=== PATIENT | female | born 1945 | race Caucasian/White ===

== ENCOUNTER 2019-03-17 18:13 | Inpatient (IN) | payer MEDICARE ==
[~2019-03-17] VITALS: Ht 172.7 cm; Wt 156.5 kg
[~2019-03-17 18:13] MED LIST: LEXAPRO10 MG PO; LISINOPRIL10 MG PO; PLAVIX75 MG PO; SIMVASTATIN20 MG PO
--- OUTSIDE RECORDS SUMMARY | 2019-03-17 18:15 | XMS REPORT ---
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 Allergies, Adverse Reactions, Alerts This patient has no known allergies or adverse reactions. Medications This patient has no known medications. Results Test Description Test Time Test Comments Text Results Atomic Results Result Comments CHEST SINGLE (PORTABLE) [place] [address] Patient Name: LEILA MCKNIGHT MR #: [id number] : 1945 Age/Sex: 71/F Req #: [id number] Adm Physician: TAYLER TIRADO MD Ordered by: TAYLER TIRADO MD Report #: [id number] Location: ICU Room/Bed: [facility] Procedure: [id number] DX/CHEST SINGLE (PORTABLE) Exam Date: 08/30/17 Exam Time: 0818 REPORT STATUS: Signed PROCEDURE: CHEST SINGLE (PORTABLE) COMPARISON: [facility], DX, CHEST SINGLE (PORTABLE), 08/27/2017, 18:02. INDICATIONS: CONGESTIVE HEART FAILURE FINDINGS: LUNGS: Worsening pulmonary edema. PLEURA: Bilateral pleural effusions; right greater than left. HEART T MEDIASTINUM: The heart remains enlarged. The right-sided PICC has been slightly retracted. BONES T SOFT TISSUES: No acute findings. CONCLUSION: Cardiomegaly, bilateral pleural effusions with worsening pulmonary edema. Cheikh Flores D.O. Dictated by: Cheikh Flores D.O. on 08/30/2017 at 10:58 Electronically approved by: Cheikh Flores D.O. on 08/30/2017 at 10:58 Dictated By: CHEIKH FLORES DO 1058 Transcribed By: EUN on 08/30/17 1058 COPY TO: TAYLER TIRADO MD US CHEST (INCL MEDIASTINUM) [place] [address] Patient Name: LEILA MCKNIGHT MR #: [id number] : 1945 Age/Sex: 71/F Req #: [id number] Adm Physician: TAYLER TIRADO MD Ordered by: ALISON CRUZ MD Report #: [id number] Location: ICU Room/Bed: [facility] Procedure: [id number] US/US CHEST (INCL MEDIASTINUM) Exam Date: 08/30/17 Exam Time: 1608 REPORT STATUS: Signed PROCEDURE: US CHEST (INCL MEDIASTINUM) COMPARISON: [facility], CT, CT CHEST WO, 08/27/2017, 15:06. INDICATIONS: Pleural Effusion FINDINGS: Exam limited by patient's body habitus. Examination shows small right pleural effusion with compressive atelectasis of the right lower lobe. No left-sided pleural effusion is identified. CONCLUSION: 1. Limited exam, as described above. Small right pleural effusion and compressive atelectasis of the right lower lobe. Perry Michaud M.D. Dictated by: Perry Michaud M.D. on 08/30/2017 at 17:27 Electronically approved by: Perry Michaud M.D. on 08/30/2017 at 17:27 Dictated By: PERRY MICHAUD MD 26 Transcribed By: EUN on 08/30/171726 COPY TO: ALISON CRUZ MD US RENAL RETROPERITONEAL COMP [place] [address] Patient Name: LEILA MCKNIGHT MR #: [id number] : 1945 Age/Sex: 71/F Req #: [id number] Adm Physician: TAYLER TIRADO MD Ordered by: MARK ROSALES, SHAHRZAD ROSALES Report #: [id number] Location: ICU Room/Bed: ICU [facility] Procedure: [id number] US/US RENAL RETROPERITONEAL COMP Exam Date: 08/28/17 Exam Time: 1226 REPORT STATUS: Signed PROCEDURE: US RETROPERITONEAL ( KIDNEY ). COMPARISON: None. INDICATIONS: HEMA TECHNIQUE: Hill-scale and color sonographic images of the bilateral kidneys and bladder where obtained in transverse and longitudinal planes. Examination limited due to increased body habitus. FINDINGS: RIGHT KIDNEY: 11.2 cm, cortex 1.4 cm Cysts: None. Solid masses: None. Stones: None. Hydronephrosis: None. Echogenicity: Normal. LEFT KIDNEY: 10.9 cm, cortex 1.3 cm Cysts: None. Solid masses: None. Stones: None. Hydronephrosis: None. Echogenicity: Normal. Bladder: Garcia catheter is present in the decompressed urinary bladder. CONCLUSION: No acute sonographic abnormality. Dictated by: Joselin Pablo M.D. on 08/28/2017 at 13:47 Electronically approved by: Joselin Pablo M.D. on 08/28/2017 at 13:47 Dictated By: JOSELIN PABLO MD 1347 Transcribed By: EUN on 08/28/17 1347 COPY TO: SHAHRZAD FLORES CHEST SINGLE (PORTABLE) [place] [address] Patient Name: LEILA MCKNIGHT MR #: [id number] : 1945 Age/Sex: 71/F Req #: [id number] Adm Physician: TAYLER TIRADO MD Ordered by: TAYLER TIRADO MD Report #: [id number] Location: ICU Room/Bed: ICU [facility] Procedure: [id number] DX/CHEST SINGLE (PORTABLE) Exam Date: 08/27/17 Exam Time: 1755 REPORT STATUS: Signed PROCEDURE: A single AP view of the chest. COMPARISON: [facility], CT, CT CHEST WO, 08/27/2017, 15:06. INDICATIONS: PICC LINE PLACEMENT FINDINGS: See impression. IMPRESSION: 1. interval placement of right-sided PIC line, which has its distal tip projecting in the mid to distal SVC. 2. Please see CT chest performed same date for description of lung findings Perry Michaud M.D. Dictated by: Perry Michaud M.D. on 08/27/2017 at 18:55 Electronically approved by: Perry Michaud M.D. on 08/27/2017 at 18:55 Dictated By: PERRY MICHAUD MD 54 COPY TO: TAYLER TIRADO MD CT CHEST WO [place] [address] Patient Name: LEILA MCKNIGHT MR #: [id number] : 1945 Age/Sex: 71/F Req #: [id number] Adm Physician: TAYLER TIRADO MD Ordered by: SHAHRZAD FLORES MD, MD Report #: [id number] Location: ICU Room/Bed: ICU 193 Procedure: [id number] CT/CT CHEST WO Exam Date: 08/27/17 Exam Time: 1506 REPORT STATUS: Signed PROCEDURE: CT CHEST WITHOUT CONTRAST CT scan of the chest WITHOUT intravenous contrast, using standard protocol. TECHNIQUE: The chest was scanned utilizing a multidetector helical scanner from the apex to the level of the adrenal glands. No IV contrast was administered per physician's request. Coronal and sagittal multiplanar reformations were obtained. COMPARISON: [facility], , CHEST 2 VIEWS, 08/24/2017, 19:58. [facility], , CHEST SINGLE (PORTABLE), 08/27/2017, 8:05. INDICATIONS: HILAR MASS FINDINGS: Lack of intravenous contrast limits evaluation of parenchymal findings and vascular pathology. Lines/tubes: None. Lungs and Airways: Centrally located groundglass opacities extending from the wolf, with intralobular septal thickening in the upper lobes, likely representing pulmonary edema. Marked compressive atelectasis of bilateral lower lobes and to a lesser degree bilateral upper lobes. No pulmonary nodules in the aerated portions of the lungs. No definite masses are identified. Pleura: Bilateral pleural effusions. No pneumothorax. Heart and mediastinum: The right thyroid lobe is enlarged with questionable hypodensity in its inferomedial aspect (series 2, image 13), which may represent a nodule. Mild cardiomegaly. Trace pericardial effusion. Atherosclerotic calcification of the aortic valve, coronary arteries and thoracic aorta, particularly at the arch. Aorta is non-aneurysmal. The main pulmonary artery is enlarged, measuring approximately 4.5 cm. Lymph nodes: Enlarged right lower paratracheal lymph node, which measures approximately 1.6 cm in short axis (series 2 image 44). Mild enlargement of a subcarinal lymph node which measures 1.5 cm in short axis (series 2 image 52). Difficult to evaluate for hilar adenopathy given the lack of intravenous contrast. No axillary adenopathy. Abdomen: Limited views of the upper abdomen show no abnormality within the visualized liver, spleen. Both adrenal glands are thickened, without focal discrete lesions. Bones: No acute bony abnormalities. Marked multilevel degenerative disc changes in the thoracic spine. Mild rightward curvature of the thoracic spine. IMPRESSION: 1. mild cardiomegaly, bilateral pulmonary edema, bilateral pleural effusions and marked compressive atelectasis of bilateral lower lobes and to a lesser degree upper lobes. Findings likely represent decompensated CHF. 2. No definite pulmonary nodules or masses are identified, however, exam is limited by lack of intravenous contrast. 3. Enlarged right lower paratracheal and subcarinal lymph nodes, which are probably reactive. 4. Thickening of both adrenal glands, likely due to hyperplasia. 5. Enlarged main pulmonary artery, consistent with pulmonary hypertension. Perry Michaud M.D. Dictated by: Perry Michaud M.D. on 08/27/2017 at 16:05 Electronically approved by: Perry Michaud M.D. on 08/27/2017 at 16:05 Dictated By: PERRY MICHAUD MD 1601 Transcribed By: EUN on 08/27/17 1605 COPY TO: SHAHRZAD FLORES [facility] (PORTABLE) [place] [id number] Patient Name: LEILA MCKNIGHT MR #: [id number] : 1945 Age/Sex: 71/F Req #: [id number] Adm Physician: TAYLER TIRADO MD Ordered by: TAYLER TIRADO MD Report #: [id number] Location: ICU Room/Bed: ICU 193-1 Procedure: [id number] DX/CHEST SINGLE (PORTABLE) Exam Date: 08/27/17 Exam Time: 0820 REPORT STATUS: Signed PROCEDURE: A single AP view of the chest. COMPARISON: Chest 2 views 08/24/2017. INDICATIONS: DYSPNEA FINDINGS: Lines/tubes: None. Lungs: Bilateral perihilar opacifications, increased since previous examination. Pleura: Bilateral pleural effusions, right greater than left. No pneumothorax. Heart and mediastinum: The heart and the mediastinum are unremarkable. Atherosclerotic calcifications. Bones: No acute bony abnormality. Degenerative changes of the thoracic spine. IMPRESSION: Bilateral perihilar opacifications likely represent pulmonary edema. Bilateral pleural effusions. Dictated by: Joselin Pablo M.D. on 08/27/2017 at 9:06 Electronically approved by: Joselin Pablo M.D. on 08/27/2017 at 9:06 Dictated By: JOSELIN PABLO MD 5 Transcribed By: EUN on 08/27/17 09 COPY TO: TAYLER TIRADO MD CT BRAIN WO [place] [address] Patient Name: LEILA MCKNIGHT MR #: [id number] : 1945 Age/Sex: 71/F Req #: [id number] Adm Physician: TAYLER TIRADO MD Ordered by: KAREN WEBSTER MD Report #: [id number] Location: MED/SURG2 Room/Bed: 203-1 Procedure: [id number] CT/CT BRAIN WO Exam Date: 08/25/17 Exam Time: 1335 REPORT STATUS: Signed History: Leg weakness Comparison studies: None Technique: Axial images were obtained from the skull base to the vertex. Coronal and sagittal reconstructions obtained from the axial data. Findings: Scalp/skull: No abnormalities. No fractures, blastic or lytic lesions. Extra-axial spaces: No masses. No fluid collections. Brain sulci: Appropriate for age. Ventricles: Normal in size and configuration. No hydrocephalus. Parenchyma: Subtle hypodensities in the supratentorial white matter are small vessel ischemic changes. No masses, hemorrhage, acute or chronic cortical vascular insults. Sellar/suprasellar region: No abnormalities Craniocervical junction: Patent foramen magnum. No Chiari one malformation. IMPRESSION: 1. No acute abnormalities. 2. Mild age-related white matter small vessel ischemic changes Signed by: Dr. Chung Ware M.D. on 08/25/2017 2:30 PM Dictated By: CHUNG STEWART MD, MD 1430 Transcribed By: LACI on 08/25/17 1430 COPY TO: KAREN WEBSTER MD CHEST 2 VIEWS [place] [address] Patient Name: LEILA MCKNIGHT MR #: [id number] : 1945 Age/Sex: 71/F Req #: [id number] Adm Physician: Ordered by: OSMEL SMITH Report #: [id number] Location: ER Room/Bed: Procedure: [id number] DX/CHEST 2 VIEWS Exam Date: 08/24/17 Exam Time: 1950 REPORT STATUS: Signed Two view chest x-ray INDICATION: Shortness of breath, weakness, chest tightness, history of smoking COMPARISON: None. FINDINGS: The heart is enlarged with aortic ectasia. There is no evidence of hilar lymphadenopathy. The lungs are hyperinflated. Central pulmonary vasculature is prominent. There are bilateral pleural effusions. The diaphragms are poorly visualized. No confluent infiltrate in the aerated lung. No pneumothorax. Evaluation of the osseous structures demonstrates diffuse demineralization and degenerative changes of the spine. No destructive lesions. IMPRESSION: Cardiomegaly and pulmonary vascular congestion. Pulmonary hyperinflation consistent with COPD. Bilateral pleural effusions. Underlying pneumonia cannot be excluded. Signed by: Dr. Jared Lundberg MD on 08/24/2017 8:43 PM Dictated By: JARED LUNDBERG MD 42 Transcribed By: LACI on 08/24/172042 COPY TO: OSMEL SMITH
[2019-03-17] MEDS ORDERED: ALBUTEROL/IPRATROPIUM 3 ML NEB NEB ONE (19:00)
[2019-03-17] MEDS ORDERED: METHYLPREDNISOLONE SOD SUCC 125 MG/2ML VIAL IV ONE (19:00)
[2019-03-17] MEDS ORDERED: IPRATROPIUM BROMIDE 0.02% 2.5 ML NEB NEB ONE (19:30)
[2019-03-17] MEDS ORDERED: ALBUTEROL SULF 0.083% NEB SOLN 3 ML NEB NEB STA (19:30)
[2019-03-17] MEDS ORDERED: ALBUTEROL SULF 0.083% NEB SOLN 3 ML NEB ONE (19:34)
[2019-03-17] MEDS ORDERED: IPRATROPIUM BROMIDE 0.02% 2.5 ML NEB ONE (19:35)
[2019-03-17 19:52] LABS: BASOPHILS # (AUTO) 0.1 (0.0-0.1); EOSINOPHILS # (AUTO) 0.1 (0.0-0.4); HEMATOCRIT 45.3 % (34.2-44.1); HEMOGLOBIN 14.2 g/dL (12.0-16.0); LYMPHOCYTES # (AUTO) 1.1 (1.0-3.2); LYMPHOCYTES % 13.5 % (18.0-39.1); MEAN CORPUSCULAR HEMOGLOBIN 30.5 pg (28-32); MEAN CORPUSCULAR HGB CONC 31.3 g/dL (31-35); MEAN CORPUSCULAR VOLUME 97.2 fL (81-99); MONOCYTES # (AUTO) 0.8 (0.2-0.8); MONOCYTES % 9.5 % (4.4-11.3); NEUTROPHILS % 74.5 % (38.7-80.0); PLATELET COUNT 175 x10e3/uL (140-360); RED BLOOD COUNT 4.66 x10e6/uL (3.6-5.1); RED CELL DISTRIBUTION WIDTH 13.9 % (11.7-14.4)
[2019-03-17 20:02] LABS: INR 1.17; PARTIAL THROMBOPLASTIN TIME 29.7 seconds (23.8-35.5); PROTHROMBIN TIME 15.5 seconds (11.9-14.5)
[2019-03-17 20:12] LABS: ALBUMIN 3.5 g/dL (3.5-5.0); ANION GAP 11.8 mmol/L (8-16); CALCIUM 9.1 mg/dL (8.4-10.2); CREATININE, SERUM 1.64 mg/dL (0.57-1.11); MAGNESIUM 2.1 MG/DL (1.3-2.1); POTASSIUM 4.8 mmol/L (3.5-5.1)
[2019-03-17 20:19] LABS: B-TYPE NATRIURETIC PEPTIDE2 229.4 pg/mL (0-100); CREATINE KINASE MB 3.4 ng/mL (0-5.0)
[2019-03-17 20:35] VITALS: BP 138/75
--- NOTE | 2019-03-17 20:46 | Diagnostic Imaging Report ---
EXAMINATION: CHEST SINGLE (PORTABLE) INDICATION: ^ERMD ORDER ^[id number] ^1900 ^Y COMPARISON: None FINDINGS: AP view, limited findings due to body habitus TUBES and LINES: None. LUNGS/PLEURA: Bibasilar opacities. Effusions cannot be excluded. No pneumothorax. Prominent pulmonary vascular. HEART AND MEDIASTINUM: Enlarged cardiac silhouette. BONES AND SOFT TISSUES: No acute osseous lesion. Soft tissues are unremarkable. UPPER ABDOMEN: No free air under the diaphragm. IMPRESSION: Limited study due to body habitus. Bibasilar opacities could represent developing infectious/inflammatory processes. Enlarged cardiac silhouette and prominent pulmonary vasculature. Signed by: Waqas Malloy MD on 03/17/2019 8:43 PM
[2019-03-17] MEDS ORDERED: ONDANSETRON HCL INJ 2MG/ML 2ML 2 MG/ML VIAL IV PRN (21:00)
[2019-03-17] MEDS ORDERED: AZITHROMYCIN 500MG/SOD CHL 0.9% 250ML BAG IV SCH (21:00)
[2019-03-17] MEDS ORDERED: CEFTRIAXONE SOD 1 GRAM/0.9% SOD CHL 50ML BAG IV SCH (21:00)
[2019-03-17] MEDS ORDERED: ACETAMINOPHEN 325 MG TAB PO PRN (21:00)
[2019-03-17] MEDS: ALBUTEROL SULF 0.083% NEB SOLN 3 ML NEB NEB SCH (21:00)
[2019-03-17] MEDS ORDERED: SODIUM CHLORIDE FLUSH 10 ML SYR INJ PRN (21:00)
[2019-03-17] MEDS: CEFTRIAXONE SOD 1 GM/NS 50 ML 50 ML IV SCH (21:34)
[2019-03-17 22:35] VITALS: BP 138/75
[2019-03-17] MEDS ORDERED: LIPITOR20 MG PO (23:34)
[2019-03-17] MEDS ORDERED: METFORMIN HCL500 MG PO (23:35)
[2019-03-17 23:52] VITALS: BP 138/75
[2019-03-18] VITALS (7 sets, daily range): BP systolic 126–180; BP diastolic 60–80
[2019-03-18] MEDS ORDERED: SODIUM CHLORIDE 0.9% 250ML 250 ML ONE ×2 (00:10→22:07)
[2019-03-18] MEDS: AZITHROMYCIN 500MG/NS 250 ML 250 ML IV SCH ×2 (00:22→21:50)
[2019-03-18] MEDS: IPRATROPIUM BROMIDE 0.02% 2.5 ML NEB NEB SCH ×5 (01:00→20:00)
[2019-03-18 01:07] LABS: BILIRUBIN,URINE NEGATIVE (NEGATIVE); CLARITY,URINE SL CLOUDY (CLEAR); COLOR,URINE YELLOW (YELLOW); KETONES,URINE NEGATIVE (NEGATIVE); LEUKOCYTE ESTERASE ,URINE NEGATIVE (NEGATIVE); NITRITE,URINE POSITIVE (NEGATIVE); PROTEIN,URINE DIPSTICK 2+ (NEGATIVE); URINE UROBILINOGEN 0.2 mg/dL (0.2 - 1)
[2019-03-18 01:27] LABS: BACTERIA,URINE MANY /HPF; EPITHELIAL CELLS,URINE FEW /LPF; WBC,URINE (MAN) 21-50 /HPF (0-5)
[2019-03-18] MEDS: ALBUTEROL SULF 0.083% NEB SOLN 3 ML NEB NEB SCH ×6 (03:00→20:00)
[2019-03-18 06:15] LABS: BASOPHILS % 0.3 % (0.0-1.0); HEMATOCRIT 45.9 % (34.2-44.1); HEMOGLOBIN 13.9 g/dL (12.0-16.0); LYMPHOCYTES # (AUTO) 0.3 (1.0-3.2); MEAN CORPUSCULAR HEMOGLOBIN 30.2 pg (28-32); MEAN CORPUSCULAR HGB CONC 30.3 g/dL (31-35); MEAN CORPUSCULAR VOLUME 99.6 fL (81-99); MONOCYTES % 0.5 % (4.4-11.3); NEUTROPHILS # (AUTO) 6.9 (2.1-6.9); NEUTROPHILS % 94.5 % (38.7-80.0); PLATELET COUNT 162 x10e3/uL (140-360); RED BLOOD COUNT 4.61 x10e6/uL (3.6-5.1); RED CELL DISTRIBUTION WIDTH 13.7 % (11.7-14.4)
[2019-03-18 06:43] LABS: ALBUMIN 3.5 g/dL (3.5-5.0); ALBUMIN/GLOBULIN RATIO 0.9 (0.8-2.0); ANION GAP 15.1 mmol/L (8-16); CALCIUM 8.8 mg/dL (8.4-10.2); CREATININE, SERUM 1.57 mg/dL (0.57-1.11); POTASSIUM 5.1 mmol/L (3.5-5.1)
[2019-03-18 06:52] LABS: CREATINE KINASE MB 3.9 ng/mL (0-5.0)
[2019-03-18] MEDS: METHYLPREDNISOLONE SOD SUCC 125 MG/2ML VIAL IV SCH ×2 (15:04→21:49)
[2019-03-18] MEDS: CLOPIDOGREL BISULFATE 75 MG TAB PO SCH (15:04)
[2019-03-18 15:33] LABS: CREATINE KINASE MB 5.7 ng/mL (0-5.0)
[2019-03-18] MEDS ORDERED: ATORVASTATIN 20 MG TAB PO SCH (21:00)
[2019-03-18] MEDS: CEFTRIAXONE SOD 1 GM/NS 50 ML 50 ML IV SCH (21:15)
--- NOTE | 2019-03-18 21:55 | History and Physical ---
HISTORY OF PRESENT ILLNESS: The patient is a 73-year-old white female, who has a past medical history positive for COPD, history of CVA in the past, history of sleep apnea, and morbid obesity, came here with shortness of breath. She was found to have pneumonia and started on IV antibiotic, breathing treatment, oxygen, and Solu-Medrol. REVIEW OF SYSTEMS: CARDIOVASCULAR: No chest pain or palpitations. RESPIRATORY: She does have shortness of breath on exertion and cough. GASTROINTESTINAL: No nausea. No vomiting. No diarrhea. GENITOURINARY: No frequency. No dysuria. ALLERGIES: SHE IS NOT ALLERGIC TO ANY MEDICATION. SOCIAL HISTORY: She smokes. She quit a few years ago. She does not drink alcohol. PAST MEDICAL HISTORY: COPD, history of CVA, history of sleep apnea, and morbid obesity. PHYSICAL EXAMINATION: VITAL SIGNS: Blood pressure 136/65, temperature 99.2, heart rate 94 per minute, respiratory rate is 20 per minute, and oxygen saturation 91%. HEART: Showed regular rhythm. Normal S1 and S2 sounds. LUNGS: Clear bilaterally. ABDOMEN: Soft. EXTREMITIES: Showed browny coloration of both lower extremities. LABORATORY DATA: On the blood work, we have CBC; white blood count 7.28, hemoglobin 13.9, hematocrit 45.9, platelet count 162,000, and MCV 99.6. On the BMP; sodium 138, potassium 5.1, chloride 101, CO2 of 27, anion gap 15.1, a BUN 28, and creatinine 1.57. GFR of 32, which is low. Glucose is 229, the last one was 276 and before that was 242. Lactic acid 15.5, calcium 8.8, total bilirubin 1.1, AST 15, ALT 12, alkaline phosphatase 76, creatine kinase 91, CK-MB 3.90, and troponin 0.025. Brain natriuretic peptide is 229.4. Protein 7.2, albumin 3.5, globulin 3.7, albumin-globulin ratio 0.9. Urinalysis is essentially unremarkable except for nitrite. On the chest x-ray, bilateral opacities could represent developing infection, inflammatory process, enlarged cardiac silhouette and prominent pulmonary vasculature. TREATMENT AND PLAN: Continue albuterol q.4 hours, Atrovent q.6 hours, Flonase 1 inhalation daily, Zithromax 250 mg IV once a day, Solu-Medrol 60 mg IV twice a day, ceftriaxone 2 g IV daily, Lipitor 20 mg at bedtime, Plavix 75 mg daily. I want to hold the Lipitor while she is on Zithromax of course. Continue Tylenol 650 mg q.4 hours as needed, citalopram 10 mg daily, lisinopril 20 mg daily, metformin 500 mg daily. We are going to discontinue because of the renal insufficiency. Continue Zofran 4 mg IV q.4 hours as needed. The patient will be transferred to [facility] once accepted. MD CAROL Hull/YANELI /[id number]
[2019-03-19] VITALS: BP 129/63
[2019-03-19] MEDS: IPRATROPIUM BROMIDE 0.02% 2.5 ML NEB NEB SCH ×3 (01:00→11:00)
[2019-03-19] MEDS: ALBUTEROL SULF 0.083% NEB SOLN 3 ML NEB NEB SCH ×5 (01:00→14:45)
--- NOTE | 2019-03-19 02:41 | Consultation ---
DATE OF CONSULTATION: 03/18/[address] Skip Colon, the patient's primary care doctor. REASON FOR REFERRAL: Hypoxemia. HISTORY OF PRESENT ILLNESS: Ms. Weaver is a pleasant 73-year-old female with hypoxemia. The patient presented to [facility] on March 17, 2019. The patient with history of multiple pulmonary problems, but due to economic limitation, she has had some difficulty adhering to recommended treatments at times. The patient with increasing shortness of breath for the last two weeks. Due to worsening swelling in the abdomen and worsening swelling in the legs, she presents to the emergency room. Due to chest x-ray finding of mild concomitant overload, she has recommended for hospitalization. Her oxygen saturation was 72% on room air prior to coming to the hospital. She says she ran out of her oxygen, which was actually borrowed from her daughter. The patient without inhalers. The patient never did sleep apnea evaluation. PAST MEDICAL HISTORY: COPD, diabetes, morbid obesity, chronic venous stasis of legs, CHF, pulmonary hypertension, history of CVA, and chronic respiratory failure. MEDICATIONS: Medication list reviewed per the chart record. ALLERGIES: NO KNOWN DRUG ALLERGIES. SOCIAL HISTORY: No alcohol or drugs. The patient smoked from age 13 to 64, two packs per day. She has had a lot of dogs mainly, but no other pets. She lives with her daughter and daughter's family. She is mainly bedbound or wheelchair bound and she has extreme difficulty standing, so therefore she is not walking. No hospital bed. Most of her supplies indeed are in woodward phase. FAMILY HISTORY: Noncontributory. REVIEW OF SYSTEMS: GENERAL: No weight loss. HEENT: No mouth ulcers. ENDOCRINE: No thyroid disease. PULMONARY: No asthma. CARDIAC: No recent heart attack. GI: No constipation. : No blood in urine. NEUROLOGIC: No seizures. MUSCULOSKELETAL: There is some arthritis in her knees on straightening. DERMATOLOGIC: No other rashes other than stasis in the legs. OBJECTIVE: VITAL SIGNS: Afebrile, vital signs noted and reviewed per the chart record. GENERAL: No acute distress, alert and calm. HEENT: Normocephalic and atraumatic. NECK: Supple. Throat midline. LUNGS: Bilateral air entry, decreased breath sounds bilaterally, few rhonchi and small wheezes. CARDIOVASCULAR: S1, S2. No murmurs, rubs, or gallops. ABDOMEN: Soft and nontender. EXTREMITIES: No clubbing, no cyanosis, there is 2 to 3+ edema. INTEGUMENT: No rash. No purpura. Some stasis changes to the legs. LABORATORY DATA: 28 BUN, 1.6 creatinine. 5.1 potassium, 16 bicarbonate, 7 white count, 46 hematocrit, 162 platelets. BNP was 229. Albumin 3.5. IMPRESSION AND PLAN: 1. Acute respiratory failure, hypoxemic and possibly hypercapnic. 2. Chronic respiratory failure, hypoxemic and hypercapnic as evidenced by August 2017. ABG, 7.10/130 pCO2, 95 pO2. 3. Morbid obesity. 4. Chronic obstructive pulmonary disease with exacerbation. 5. Cor pulmonale. 6. Obstructive sleep apnea, nonadherent to treatment. 7. Chronic smoker, quit 9 years ago. 8. Congestive heart failure. 9. Peripheral vascular disease. 10. Hypertension. 11. Pneumonia. 12. Debility, inability to mobilize, poor functional endurance. 13. Urinary tract infection with urinalysis, 41-50 white cells. 14. History of cerebrovascular accident. I highly recommend outpatient oxygen therapy. I highly recommend noninvasive ventilator as outpatient as the patient is not eligible to use any other equivalent device including CPAP or bilevel PAP devices. These devices do not have alarms that are critically needed, do not have backup battery power, and cannot record the same information that may be critically necessary and may lead to to the patient if these special elements are not present. Bilevel device cannot provide these elements. The patient also was recommended for hospital bed with electric power in bed rails. Bed rails are needed because the patient has difficulty mobilizing and needs to pull on structure in order to safely turn or sit up. Electric power is used for the patient can mobilize herself for her COPD and respiratory failure as there are times that there is no assistance available to mobilize her. These are important that the patient can continue to breath and not asphyxiate. The patient is also recommended for any wheelchair device for her size as well as other equipment as mobility is paramount for her and her quality of life. Continue antibiotics for pneumonia and urinary tract infection and followup cultures. Followup elevated creatinine. Diuresis as her kidneys tolerate. Thank you very much, Dr. Colon for allowing me a chance to participate in the care of Ms. Weaver. Please call for questions. MD PRICILLA Saldaña/YANELI /[phone]
[2019-03-19 04:00] VITALS: BP 110/55
[2019-03-19] MEDS ORDERED: BUDESONIDE 180MCG TUBUHALER INH SCH (06:00)
[2019-03-19] MEDS ORDERED: METFORMIN HCL 500 MG TAB PO SCH (08:00)
[2019-03-19 08:25] VITALS: BP 112/22
[2019-03-19] MEDS ORDERED: LISINOPRIL 10 MG TAB PO SCH (09:00)
[2019-03-19] MEDS ORDERED: ESCITALOPRAM OXALATE 10 MG TAB PO SCH (09:00)
[2019-03-19 09:10] VITALS: BP 112/22
[2019-03-19] MEDS: METHYLPREDNISOLONE SOD SUCC 125 MG/2ML VIAL IV SCH (09:18)
[2019-03-19] MEDS: CLOPIDOGREL BISULFATE 75 MG TAB PO SCH (09:19)
[2019-03-19 13:47] VITALS: BP 135/60
[2019-03-19] MEDS ORDERED: ONDANSETRON HCL 4 MG ORAL DISINTEGRATING TAB PO PRN (14:45)
[2019-03-19 16:42] VITALS: BP 124/62
[2019-03-19] MEDS ORDERED: DOCUSATE SODIUM 100 MG CAP PO SCH (17:00)
--- NOTE | 2019-03-20 03:32 | Discharge Summary ---
HISTORY: A 73-year-old female with past medical history positive for COPD, hypercholesterolemia, hypertension, diabetes, came here with COPD exacerbation. She was also found to have UTI, started on IV antibiotic, breathing treatment. The patient is going to go to [facility] today. PHYSICAL EXAMINATION: HEART: Showed regular rhythm. Normal S1 and S2 sound. LUNGS: Clear bilaterally. ABDOMEN: Soft. FINAL IMPRESSION: 1. Chronic obstructive pulmonary disease exacerbation. 2. Urinary tract infection. 3. Uncontrolled diabetes mellitus type 2 with chronic renal insufficiency. 4. Chronic renal insufficiency, stage 3. 5. Obstructive sleep apnea. 6. pneumonia. 7. History of cerebrovascular accident without deficit. 8. Oatdz-sf-pwbortc renal failure stage 3. 9. Morbid obesity. PLAN OF TREATMENT: Continue albuterol q.4 hours, Atrovent q.6 hours with Pulmicort 1 inhalation daily, Zithromax 250 mg IV daily, Solu-Medrol 60 mg IV twice a day, ceftriaxone 2 g IV once a day, Lipitor 20 mg daily, Plavix 75 mg daily, Tylenol 650 mg q.4 hours as needed, citalopram 10 mg daily, lisinopril 20 mg daily, metformin 500 mg daily, and Zofran 4 mg IV q.4 hours as needed. The patient is going to be transferred to [facility] today for physical and occupational therapy, antibiotic and optimization of cardiopulmonary status. MD CAROL Hull/YANELI /[id number]
[2019-03-20] MEDS ORDERED: GLIMEPIRIDE 2 MG TAB PO SCH (08:00)
[2019-03-20] MEDS ORDERED: LISINOPRIL 20 MG TAB PO SCH (09:00)
== END 2019-03-19 18:14 | DRG 193 ==
LOC: ER 18:13 → ERHOLD 21:33 → MED/SURG 22:35 → MED/SURG2 03-18 14:33
PROVIDERS: ADMIT Internal Medicine; ATTEND Internal Medicine
DX: J15.9 Unspecified bacterial pneumonia (principal); J96.22 Acute and chronic respiratory failure with hypercapnia; J96.21 Acute and chronic respiratory failure with hypoxia; J44.0 Chronic obstructive pulmonary disease with (acute) lower respiratory infection; N17.9 Acute kidney failure, unspecified; Z68.43 Body mass index [BMI] 50.0-59.9, adult; I13.0 Hypertensive heart and chronic kidney disease with heart failure and stage 1 through stage 4 chronic kidney disease, or unspecified chronic kidney disease; N39.0 Urinary tract infection, site not specified; J44.1 Chronic obstructive pulmonary disease with (acute) exacerbation; E66.01 Morbid (severe) obesity due to excess calories; I87.8 Other specified disorders of veins; E11.65 Type 2 diabetes mellitus with hyperglycemia; E78.00 Pure hypercholesterolemia, unspecified; E11.22 Type 2 diabetes mellitus with diabetic chronic kidney disease; N18.3 Chronic kidney disease, stage 3 (moderate); I50.9 Heart failure, unspecified; I27.81 Cor pulmonale (chronic); G47.33 Obstructive sleep apnea (adult) (pediatric); Z99.3 Dependence on wheelchair; Z86.73 Personal history of transient ischemic attack (TIA), and cerebral infarction without residual deficits; Z87.891 Personal history of nicotine dependence; R53.81 Other malaise; Z91.19 Patient's noncompliance with other medical treatment and regimen; Z79.84 Long term (current) use of oral hypoglycemic drugs; Z79.02 Long term (current) use of antithrombotics/antiplatelets
CPT/HCPCS: 36415; 71045; 80053; 81001; 82550; 82553; 82948; 83605; 83735; 83880; 84484; 85025; 85610; 85730; 87040; 87086; 87186; 93005; 94640; 99284; J0456; J0696; J2930; J7050

== ENCOUNTER 2021-01-07 11:58 | Inpatient (IN) | payer MEDICARE ==
[~2021-01-07] VITALS: Ht 172.7 cm; Wt 156.5 kg
[~2021-01-07 11:58] MED LIST changes: +LIPITOR20 MG PO; +METFORMIN HCL500 MG PO
[2021-01-07] MEDS ORDERED: ASPIRIN 81 MG CHEW TAB PO ONE ×2 (12:15→14:45)
[2021-01-07 12:35] LABS: BASOPHILS # (AUTO) 0.1 (0.0-0.1); BASOPHILS % 0.9 % (0.0-1.0); EOSINOPHILS # (AUTO) 0.1 (0.0-0.4); EOSINOPHILS % 0.9 % (0.0-6.0); HEMATOCRIT 45.9 % (34.2-44.1); HEMOGLOBIN 14.2 g/dL (12.0-16.0); LYMPHOCYTES % 14.5 % (18.0-39.1); MEAN CORPUSCULAR HEMOGLOBIN 30.7 pg (28-32); MEAN CORPUSCULAR HGB CONC 30.9 g/dL (31-35); MEAN CORPUSCULAR VOLUME 99.4 fL (81-99); MONOCYTES # (AUTO) 0.4 (0.2-0.8); MONOCYTES % 6.2 % (4.4-11.3); NEUTROPHILS # (AUTO) 5.2 (2.1-6.9); NEUTROPHILS % 76.9 % (38.7-80.0); PLATELET COUNT 132 x10e3/uL (140-360); RED BLOOD COUNT 4.62 x10e6/uL (3.6-5.1); RED CELL DISTRIBUTION WIDTH 13.4 % (11.7-14.4)
[2021-01-07 12:54] LABS: ALBUMIN 3.4 g/dL (3.5-5.0); ALBUMIN/GLOBULIN RATIO 0.8 (0.8-2.0); ANION GAP 13.8 mmol/L (8-16); CREATININE, SERUM 1.27 mg/dL (0.57-1.11); POTASSIUM 4.8 mmol/L (3.5-5.1)
[2021-01-07 13:08] LABS: CLARITY,URINE SL CLOUDY (CLEAR); COLOR,URINE YELLOW (YELLOW); KETONES,URINE NEGATIVE (NEGATIVE); LEUKOCYTE ESTERASE ,URINE NEGATIVE (NEGATIVE); NITRITE,URINE POSITIVE (NEGATIVE); PROTEIN,URINE DIPSTICK >=300 (NEGATIVE); URINE UROBILINOGEN 0.2 mg/dL (0.2 - 1)
[2021-01-07 13:11] LABS: B-TYPE NATRIURETIC PEPTIDE2 48.2 pg/mL (0-100)
[2021-01-07 13:16] LABS: BACTERIA,URINE MANY /HPF; EPITHELIAL CELLS,URINE FEW /LPF; RBC,URINE 0-5 /HPF (0-5); WBC,URINE (MAN) 21-50 /HPF (0-5)
[2021-01-07] MEDS ORDERED: SODIUM CHLORIDE FLUSH 10 ML SYR INJ PRN (14:45)
[2021-01-07] MEDS ORDERED: ALBUTEROL/IPRATROPIUM 3 ML NEB NEB STA (15:03)
[2021-01-07] MEDS ORDERED: ALBUTEROL/IPRATROPIUM 3 ML NEB ONE (15:14)
[2021-01-07] MEDS ORDERED: ACETAMINOPHEN 325 MG TAB PO ONE (15:30)
[2021-01-07 16:27] LABS: ABG HCO3 39 mmol/L (22-26); ABG PCO2 79 mmHg (35-45); ABG PO2 55 mmHg (80-105); ABG TCO2 41
[2021-01-07 18:08] VITALS: BP 101/54
[2021-01-07 18:09] VITALS: BP 101/54
[2021-01-07] MEDS: ENOXAPARIN SOD INJ 60 MG/0.6 ML SYR SC SCH (19:04)
[2021-01-07] MEDS: FUROSEMIDE INJ 10 MG/ML 4 ML VIAL IV SCH (19:04)
[2021-01-07 20:00] VITALS: BP 109/53
[2021-01-07 21:31] VITALS: BP 109/53
[2021-01-08] VITALS (7 sets, daily range): BP systolic 122–133; BP diastolic 66–72
[2021-01-08 05:38] LABS: BASOPHILS # (AUTO) 0.1 (0.0-0.1); BASOPHILS % 0.7 % (0.0-1.0); EOSINOPHILS # (AUTO) 0.1 (0.0-0.4); EOSINOPHILS % 0.9 % (0.0-6.0); HEMATOCRIT 43.3 % (34.2-44.1); HEMOGLOBIN 13.2 g/dL (12.0-16.0); LYMPHOCYTES # (AUTO) 0.7 (1.0-3.2); LYMPHOCYTES % 9.8 % (18.0-39.1); MEAN CORPUSCULAR HEMOGLOBIN 30.3 pg (28-32); MEAN CORPUSCULAR HGB CONC 30.5 g/dL (31-35); MEAN CORPUSCULAR VOLUME 99.3 fL (81-99); MONOCYTES # (AUTO) 0.5 (0.2-0.8); MONOCYTES % 7.2 % (4.4-11.3); NEUTROPHILS # (AUTO) 5.6 (2.1-6.9); NEUTROPHILS % 80.7 % (38.7-80.0); PLATELET COUNT 134 x10e3/uL (140-360); RED BLOOD COUNT 4.36 x10e6/uL (3.6-5.1); RED CELL DISTRIBUTION WIDTH 13.3 % (11.7-14.4)
[2021-01-08 05:54] LABS: ALBUMIN/GLOBULIN RATIO 0.8 (0.8-2.0); ANION GAP 12.8 mmol/L (8-16); CALCIUM 8.5 mg/dL (8.4-10.2); CREATININE, SERUM 1.32 mg/dL (0.57-1.11); POTASSIUM 4.8 mmol/L (3.5-5.1)
[2021-01-08] MEDS: FUROSEMIDE INJ 10 MG/ML 4 ML VIAL IV SCH ×2 (06:09→18:00)
[2021-01-08 06:21] LABS: CREATINE KINASE MB 0.8 ng/mL (0-5.0)
[2021-01-08 13:11] LABS: CREATINE KINASE MB 0.6 ng/mL (0-5.0)
[2021-01-08] MEDS ORDERED: DEXTROSE 50% SYRINGE 50 ML IV PRN (13:45)
[2021-01-08] MEDS ORDERED: CEFTRIAXONE SOD 2 GM/100 ML ML IV SCH (13:45)
[2021-01-08] MEDS ORDERED: SODIUM CHLORIDE 0.9% 250ML 250 ML ONE (14:23)
[2021-01-08] MEDS: CEFTRIAXONE SOD 2 GM in SODIUM CHLORIDE 0.9% 100 ML IV SCH (14:27)
[2021-01-08] MEDS: AZITHROMYCIN 250MG/NS 100 ML 100 ML IV SCH (15:00)
[2021-01-08] MEDS: ALBUTEROL/IPRATROPIUM 3 ML NEB NEB SCH ×3 (15:00→23:00)
[2021-01-08] MEDS: ENOXAPARIN SOD INJ 60 MG/0.6 ML SYR SC SCH (16:38)
[2021-01-08] MEDS: NYSTATIN 100,000 UNITS/GM CRM 30GM TUBE TOP SCH (16:38)
[2021-01-08] MEDS: BUDESONIDE 0.5MG/2 ML NEB INH SCH (21:20)
[2021-01-09] VITALS (8 sets, daily range): BP systolic 90–141; BP diastolic 52–81
[2021-01-09] MEDS: ALBUTEROL/IPRATROPIUM 3 ML NEB NEB SCH ×6 (03:00→23:25)
[2021-01-09] MEDS: FUROSEMIDE INJ 10 MG/ML 4 ML VIAL IV SCH (06:00)
[2021-01-09 06:23] LABS: BASOPHILS # (AUTO) 0.1 (0.0-0.1); BASOPHILS % 0.8 % (0.0-1.0); EOSINOPHILS # (AUTO) 0.1 (0.0-0.4); EOSINOPHILS % 1.5 % (0.0-6.0); HEMATOCRIT 43.1 % (34.2-44.1); HEMOGLOBIN 13.5 g/dL (12.0-16.0); LYMPHOCYTES # (AUTO) 0.7 (1.0-3.2); LYMPHOCYTES % 10.5 % (18.0-39.1); MEAN CORPUSCULAR HGB CONC 31.3 g/dL (31-35); MEAN CORPUSCULAR VOLUME 98.9 fL (81-99); MONOCYTES # (AUTO) 0.5 (0.2-0.8); MONOCYTES % 7.7 % (4.4-11.3); NEUTROPHILS # (AUTO) 4.9 (2.1-6.9); PLATELET COUNT 130 x10e3/uL (140-360); RED BLOOD COUNT 4.36 x10e6/uL (3.6-5.1); RED CELL DISTRIBUTION WIDTH 13.2 % (11.7-14.4)
[2021-01-09] MEDS: BUDESONIDE 0.5MG/2 ML NEB INH SCH ×2 (06:58→19:13)
[2021-01-09 07:04] LABS: ALBUMIN/GLOBULIN RATIO 0.8 (0.8-2.0); CALCIUM 8.7 mg/dL (8.4-10.2); CREATININE, SERUM 1.16 mg/dL (0.57-1.11)
[2021-01-09] MEDS: ACETAZOLAMIDE 250 MG TAB PO SCH (08:29)
[2021-01-09] MEDS: NYSTATIN 100,000 UNITS/GM CRM 30GM TUBE TOP SCH ×2 (08:30→16:04)
[2021-01-09] MEDS: CLOPIDOGREL BISULFATE 75 MG TAB PO SCH (08:30)
[2021-01-09] MEDS ORDERED: ACETAMINOPHEN 325 MG TAB PO PRN (08:30)
[2021-01-09] MEDS: LISINOPRIL 10 MG TAB PO SCH (08:30)
[2021-01-09] MEDS ORDERED: SODIUM CHLORIDE 0.9% 250ML 250 ML ONE (12:41)
[2021-01-09] MEDS: CEFTRIAXONE SOD 2 GM in SODIUM CHLORIDE 0.9% 100 ML IV SCH (13:39)
[2021-01-09] MEDS: AZITHROMYCIN 250MG/NS 100 ML 100 ML IV SCH (14:33)
[2021-01-09] MEDS: ENOXAPARIN SOD INJ 60 MG/0.6 ML SYR SC SCH (16:04)
[2021-01-10] VITALS (7 sets, daily range): BP systolic 91–119; BP diastolic 51–91
[2021-01-10] MEDS: ALBUTEROL/IPRATROPIUM 3 ML NEB NEB SCH ×7 (03:00→23:30)
[2021-01-10] MEDS: FUROSEMIDE INJ 10 MG/ML 4 ML VIAL IV SCH (06:00)
[2021-01-10 06:35] LABS: CALCIUM 8.6 mg/dL (8.4-10.2); CREATININE, SERUM 1.55 mg/dL (0.57-1.11)
[2021-01-10] MEDS: LISINOPRIL 10 MG TAB PO SCH (07:52)
[2021-01-10] MEDS: NYSTATIN 100,000 UNITS/GM CRM 30GM TUBE TOP SCH ×2 (07:52→17:12)
[2021-01-10] MEDS: CLOPIDOGREL BISULFATE 75 MG TAB PO SCH (07:55)
[2021-01-10] MEDS: ACETAZOLAMIDE 250 MG TAB PO SCH (07:55)
[2021-01-10] MEDS: BUDESONIDE 0.5MG/2 ML NEB INH SCH ×2 (09:36→19:00)
[2021-01-10] MEDS ORDERED: SODIUM CHLORIDE 0.9% 50ML 50 ML ONE (14:17)
[2021-01-10] MEDS: AZITHROMYCIN 250MG/NS 100 ML 100 ML IV SCH (14:48)
[2021-01-10] MEDS: CEFTRIAXONE SOD 2 GM in SODIUM CHLORIDE 0.9% 100 ML IV SCH (15:08)
[2021-01-10] MEDS: ENOXAPARIN SOD INJ 60 MG/0.6 ML SYR SC SCH (17:32)
[2021-01-11] VITALS: BP 104/64
[2021-01-11] MEDS: ALBUTEROL/IPRATROPIUM 3 ML NEB NEB SCH ×2 (02:50→08:05)
[2021-01-11 04:00] VITALS: BP 108/88
[2021-01-11] MEDS: FUROSEMIDE INJ 10 MG/ML 4 ML VIAL IV SCH (06:20)
[2021-01-11 07:54] VITALS: BP 141/64
[2021-01-11] MEDS: BUDESONIDE 0.5MG/2 ML NEB INH SCH (08:05)
[2021-01-11] MEDS: LISINOPRIL 10 MG TAB PO SCH (08:07)
[2021-01-11] MEDS: NYSTATIN 100,000 UNITS/GM CRM 30GM TUBE TOP SCH (08:07)
[2021-01-11] MEDS: ACETAZOLAMIDE 250 MG TAB PO SCH (08:07)
[2021-01-11] MEDS: CLOPIDOGREL BISULFATE 75 MG TAB PO SCH (08:07)
[2021-01-11] MEDS ORDERED: FUROSEMIDE 40 MG TAB PO SCH (09:00)
[2021-01-11 09:22] VITALS: BP 141/64
[2021-01-11 12:09] VITALS: BP 102/49
[2021-01-12] MEDS ORDERED: FUROSEMIDE 40 MG TAB PO SCH (09:00)
== END 2021-01-11 13:08 | DRG 291 ==
LOC: ER 12:03 → ERHOLD 15:53 → IMCU 17:41 → MED/SURG2 01-08 18:35 → MED/SURG 01-10 05:07
PROVIDERS: ADMIT Internal Medicine; ATTEND Internal Medicine
PROC: 0HBRXZZ Excision of Toe Nail, External Approach (ICD-10-PCS; principal; 2021-01-10)
PROC: 0HBRXZZ Excision of Toe Nail, External Approach (ICD-10-PCS; 2021-01-10)
PROC: 0HBRXZZ Excision of Toe Nail, External Approach (ICD-10-PCS; 2021-01-10)
PROC: 0HBRXZZ Excision of Toe Nail, External Approach (ICD-10-PCS; 2021-01-10)
PROC: 0HBRXZZ Excision of Toe Nail, External Approach (ICD-10-PCS; 2021-01-10)
PROC: 0HBRXZZ Excision of Toe Nail, External Approach (ICD-10-PCS; 2021-01-10)
PROC: 0HBRXZZ Excision of Toe Nail, External Approach (ICD-10-PCS; 2021-01-10)
PROC: 0HBRXZZ Excision of Toe Nail, External Approach (ICD-10-PCS; 2021-01-10)
PROC: 0HBRXZZ Excision of Toe Nail, External Approach (ICD-10-PCS; 2021-01-10)
PROC: 0HBRXZZ Excision of Toe Nail, External Approach (ICD-10-PCS; 2021-01-10)
PROC: 02HV33Z Insertion of Infusion Device into Superior Vena Cava, Percutaneous Approach (ICD-10-PCS; 2021-01-10)
DX: I13.0 Hypertensive heart and chronic kidney disease with heart failure and stage 1 through stage 4 chronic kidney disease, or unspecified chronic kidney disease (principal); J96.21 Acute and chronic respiratory failure with hypoxia; J15.9 Unspecified bacterial pneumonia; I50.33 Acute on chronic diastolic (congestive) heart failure; J44.0 Chronic obstructive pulmonary disease with (acute) lower respiratory infection; N17.9 Acute kidney failure, unspecified; G93.40 Encephalopathy, unspecified; Z68.43 Body mass index [BMI] 50.0-59.9, adult; N39.0 Urinary tract infection, site not specified; J44.1 Chronic obstructive pulmonary disease with (acute) exacerbation; I27.81 Cor pulmonale (chronic); N18.30 Chronic kidney disease, stage 3 unspecified; E66.01 Morbid (severe) obesity due to excess calories; G47.30 Sleep apnea, unspecified; I87.2 Venous insufficiency (chronic) (peripheral); B35.1 Tinea unguium; E11.51 Type 2 diabetes mellitus with diabetic peripheral angiopathy without gangrene; Z74.01 Bed confinement status; E11.65 Type 2 diabetes mellitus with hyperglycemia; Z86.73 Personal history of transient ischemic attack (TIA), and cerebral infarction without residual deficits; I27.20 Pulmonary hypertension, unspecified; Z20.822 Contact with and (suspected) exposure to COVID-19; Z74.09 Other reduced mobility
CPT/HCPCS: 36415; 36569; 36600; 51700; 70450; 71045; 80048; 80053; 81001; 82550; 82553; 82805; 82948; 83605; 83735; 83880; 84484; 85025; 87040; 93005; 93306; 94640; 94660; 97139; 99251; 99285; J0696; J1650; J1940; J7050; U0002

== ENCOUNTER → 2021-06-08 | Outpatient (CLI) | payer MEDICARE ==
[~2021-06-08] MED LIST changes: +ALBUTEROL SULF 0.083% NEB SOLN 3 ML NEB ONE
== END ==
LOC: RESP 13:03
PROVIDERS: ATTEND Internal Medicine Critical Care Medicine
DX: R09.02 Hypoxemia (principal); E11.9 Type 2 diabetes mellitus without complications; J44.9 Chronic obstructive pulmonary disease, unspecified; I10 Essential (primary) hypertension; F32.9 Major depressive disorder, single episode, unspecified; E66.2 Morbid (severe) obesity with alveolar hypoventilation; Z86.73 Personal history of transient ischemic attack (TIA), and cerebral infarction without residual deficits
CPT/HCPCS: 94060; 94640; 94727; 94729

== ENCOUNTER 2022-06-22 21:41 | Inpatient (IN) | payer MEDICARE ==
[~2022-06-22] VITALS: Ht 157.5 cm; Wt 131.7 kg
[~2022-06-22 21:41] MED LIST changes: -ALBUTEROL SULF 0.083% NEB SOLN 3 ML NEB ONE
[2022-06-22 22:10] LABS: CLARITY,URINE CLOUDY (CLEAR); COLOR,URINE YELLOW (YELLOW); KETONES,URINE 1+ (NEGATIVE); LEUKOCYTE ESTERASE ,URINE TRACE (NEGATIVE); NITRITE,URINE POSITIVE (NEGATIVE); PROTEIN,URINE DIPSTICK >=300 (NEGATIVE); URINE UROBILINOGEN 0.2 mg/dL (0.2 - 1)
[2022-06-22 22:16] LABS: BACTERIA,URINE MANY /HPF; EPITHELIAL CELLS,URINE FEW /LPF; WBC,URINE (MAN) 21-50 /HPF (0-5)
[2022-06-22 22:40] LABS: BASOPHILS # (AUTO) 0.1 (0.0-0.1); BASOPHILS % 1.3 % (0.0-1.0); EOSINOPHILS % 0.5 % (0.0-6.0); HEMATOCRIT 45.2 % (34.2-44.1); HEMOGLOBIN 14.6 g/dL (12.0-16.0); LYMPHOCYTES # (AUTO) 0.6 (1.0-3.2); LYMPHOCYTES % 15.5 % (18.0-39.1); MEAN CORPUSCULAR HEMOGLOBIN 30.4 pg (28-32); MEAN CORPUSCULAR HGB CONC 32.3 g/dL (31-35); MEAN CORPUSCULAR VOLUME 94.2 fL (81-99); MONOCYTES # (AUTO) 0.6 (0.2-0.8); MONOCYTES % 14.2 % (4.4-11.3); NEUTROPHILS # (AUTO) 2.7 (2.1-6.9); PLATELET COUNT 109 x10e3/uL (140-360); RED CELL DISTRIBUTION WIDTH 12.9 % (11.7-14.4)
[2022-06-22 22:56] LABS: ALBUMIN 3.8 g/dL (3.5-5.0); ALBUMIN/GLOBULIN RATIO 0.9 (0.8-2.0); ANION GAP 20.1 mmol/L (8-16); CALCIUM 9.4 mg/dL (8.4-10.2); CREATININE, SERUM 1.31 mg/dL (0.57-1.11); POTASSIUM 4.1 mmol/L (3.5-5.1)
[2022-06-22 23:02] LABS: CREATINE KINASE MB 2.4 ng/mL (0-5.0)
[2022-06-22] MEDS ORDERED: DEXTROSE 50% SYRINGE 50 ML IV PRN (23:30)
[2022-06-22] MEDS ORDERED: ONDANSETRON HCL INJ 2MG/ML 2ML 2 MG/ML VIAL IV PRN (23:30)
[2022-06-22] MEDS ORDERED: SODIUM CHLORIDE FLUSH 10 ML SYR INJ PRN (23:30)
[2022-06-22] MEDS: ACETAMINOPHEN 325 MG TAB PO PRN (23:55)
[2022-06-23] VITALS (9 sets, daily range): BP systolic 99–138; BP diastolic 57–85
[2022-06-23] MEDS: FUROSEMIDE INJ 10 MG/ML 4 ML VIAL IV SCH ×3 (00:28→20:30)
[2022-06-23] MEDS ORDERED: GLIMEPIRIDE2 MG PO (01:48)
[2022-06-23] MEDS: ACETAMINOPHEN 325 MG TAB PO PRN ×2 (06:08→12:13)
[2022-06-23 07:25] LABS: CREATINE KINASE MB 4.3 ng/mL (0-5.0)
[2022-06-23] MEDS: INSULIN REGULAR, HUMAN 100 UNIT/1 ML SQ SCH ×4 (07:30→20:30)
[2022-06-23] MEDS ORDERED: SODIUM CHLORIDE 0.9% 250ML 250 ML ONE (08:55)
[2022-06-23] MEDS: CLOPIDOGREL BISULFATE 75 MG TAB PO SCH (12:08)
[2022-06-23] MEDS: ESCITALOPRAM OXALATE 10 MG TAB PO SCH (12:08)
[2022-06-23] MEDS: GLIMEPIRIDE 2 MG TAB PO SCH (12:09)
[2022-06-23] MEDS: LISINOPRIL 20 MG TAB PO SCH (12:12)
[2022-06-23 17:36] LABS: CREATINE KINASE MB 4.2 ng/mL (0-5.0)
[2022-06-24] VITALS (8 sets, daily range): BP systolic 99–136; BP diastolic 50–63
[2022-06-24] MEDS: ACETAMINOPHEN 325 MG TAB PO PRN ×3 (00:18→14:13)
[2022-06-24] MEDS: INSULIN REGULAR, HUMAN 100 UNIT/1 ML SQ SCH ×4 (07:30→21:00)
[2022-06-24 07:48] LABS: BASOPHILS % 0.7 % (0.0-1.0); EOSINOPHILS % 0.7 % (0.0-6.0); HEMATOCRIT 42.9 % (34.2-44.1); HEMOGLOBIN 14.2 g/dL (12.0-16.0); LYMPHOCYTES # (AUTO) 0.6 (1.0-3.2); LYMPHOCYTES % 17.9 % (18.0-39.1); MEAN CORPUSCULAR HEMOGLOBIN 30.8 pg (28-32); MEAN CORPUSCULAR HGB CONC 33.1 g/dL (31-35); MEAN CORPUSCULAR VOLUME 93.1 fL (81-99); MONOCYTES # (AUTO) 0.6 (0.2-0.8); MONOCYTES % 20.2 % (4.4-11.3); NEUTROPHILS # (AUTO) 1.9 (2.1-6.9); NEUTROPHILS % 60.2 % (38.7-80.0); PLATELET COUNT 105 x10e3/uL (140-360); RED BLOOD COUNT 4.61 x10e6/uL (3.6-5.1); RED CELL DISTRIBUTION WIDTH 13.6 % (11.7-14.4)
[2022-06-24 08:14] LABS: CREATINE KINASE MB 3.5 ng/mL (0-5.0)
[2022-06-24 08:30] LABS: ANION GAP 20.8 mmol/L (8-16); CALCIUM 8.1 mg/dL (8.4-10.2); CREATININE, SERUM 2.07 mg/dL (0.57-1.11); POTASSIUM 3.8 mmol/L (3.5-5.1)
[2022-06-24] MEDS: FUROSEMIDE INJ 10 MG/ML 4 ML VIAL IV SCH ×2 (09:27→22:34)
[2022-06-24] MEDS: CLOPIDOGREL BISULFATE 75 MG TAB PO SCH (09:27)
[2022-06-24] MEDS: GLIMEPIRIDE 2 MG TAB PO SCH (09:28)
[2022-06-24] MEDS: LISINOPRIL 20 MG TAB PO SCH (09:28)
[2022-06-24] MEDS: ESCITALOPRAM OXALATE 10 MG TAB PO SCH (09:28)
[2022-06-24] MEDS: RIFAXIMIN 550 MG TABLET PO SCH ×2 (14:00→23:38)
[2022-06-24] MEDS ORDERED: DIPHENOXYLATE/ATROPINE TAB PO ONE (14:05)
[2022-06-24] MEDS: LIDOCAINE 4% PATCH TP SCH (14:12)
[2022-06-24] MEDS: MIDODRINE HCL 5 MG TABLET PO SCH (16:18)
[2022-06-24] MEDS: DEXAMETHASONE 4 MG TAB PO SCH (16:18)
[2022-06-25] VITALS (8 sets, daily range): BP systolic 101–134; BP diastolic 53–77
[2022-06-25] MEDS: ACETAMINOPHEN 325 MG TAB PO PRN ×2 (03:33→09:06)
[2022-06-25 06:29] LABS: HEMATOCRIT 40.8 % (34.2-44.1); HEMOGLOBIN 13.9 g/dL (12.0-16.0); LYMPHOCYTES # (AUTO) 0.4 (1.0-3.2); LYMPHOCYTES % 17.6 % (18.0-39.1); MEAN CORPUSCULAR HGB CONC 34.1 g/dL (31-35); MEAN CORPUSCULAR VOLUME 91.1 fL (81-99); MONOCYTES # (AUTO) 0.3 (0.2-0.8); MONOCYTES % 12.3 % (4.4-11.3); NEUTROPHILS # (AUTO) 1.4 (2.1-6.9); NEUTROPHILS % 67.6 % (38.7-80.0); PLATELET COUNT 105 x10e3/uL (140-360); RED BLOOD COUNT 4.48 x10e6/uL (3.6-5.1); RED CELL DISTRIBUTION WIDTH 13.2 % (11.7-14.4)
[2022-06-25 06:43] LABS: CALCIUM 7.9 mg/dL (8.4-10.2); CREATININE, SERUM 2.22 mg/dL (0.57-1.11)
[2022-06-25] MEDS: INSULIN REGULAR, HUMAN 100 UNIT/1 ML SQ SCH ×4 (07:30→21:00)
[2022-06-25] MEDS: GLIMEPIRIDE 2 MG TAB PO SCH (09:04)
[2022-06-25] MEDS: FUROSEMIDE INJ 10 MG/ML 4 ML VIAL IV SCH ×2 (09:04→22:03)
[2022-06-25] MEDS: MIDODRINE HCL 5 MG TABLET PO SCH ×3 (09:04→17:34)
[2022-06-25] MEDS: ESCITALOPRAM OXALATE 10 MG TAB PO SCH (09:04)
[2022-06-25] MEDS: RIFAXIMIN 550 MG TABLET PO SCH ×2 (09:05→22:03)
[2022-06-25] MEDS: LISINOPRIL 20 MG TAB PO SCH (09:05)
[2022-06-25] MEDS: CLOPIDOGREL BISULFATE 75 MG TAB PO SCH (09:05)
[2022-06-25] MEDS: LIDOCAINE 4% PATCH TP SCH (09:06)
[2022-06-25] MEDS: DEXAMETHASONE 4 MG TAB PO SCH (14:34)
[2022-06-26] VITALS (8 sets, daily range): BP systolic 101–109; BP diastolic 58–63
[2022-06-26 05:52] LABS: BASOPHILS % 0.4 % (0.0-1.0); HEMATOCRIT 43.3 % (34.2-44.1); HEMOGLOBIN 13.7 g/dL (12.0-16.0); LYMPHOCYTES # (AUTO) 0.5 (1.0-3.2); LYMPHOCYTES % 18.4 % (18.0-39.1); MEAN CORPUSCULAR HEMOGLOBIN 30.3 pg (28-32); MEAN CORPUSCULAR HGB CONC 31.6 g/dL (31-35); MEAN CORPUSCULAR VOLUME 95.8 fL (81-99); MONOCYTES # (AUTO) 0.3 (0.2-0.8); MONOCYTES % 12.1 % (4.4-11.3); NEUTROPHILS # (AUTO) 1.9 (2.1-6.9); NEUTROPHILS % 68.4 % (38.7-80.0); PLATELET COUNT 112 x10e3/uL (140-360); RED BLOOD COUNT 4.52 x10e6/uL (3.6-5.1); RED CELL DISTRIBUTION WIDTH 13.2 % (11.7-14.4)
[2022-06-26 06:21] LABS: ALBUMIN 3.1 g/dL (3.5-5.0); ANION GAP 13.3 mmol/L (8-16); CREATININE, SERUM 2.1 mg/dL (0.57-1.11); POTASSIUM 4.3 mmol/L (3.5-5.1)
[2022-06-26] MEDS: INSULIN REGULAR, HUMAN 100 UNIT/1 ML SQ SCH ×4 (07:30→21:00)
[2022-06-26] MEDS: ESCITALOPRAM OXALATE 10 MG TAB PO SCH (08:54)
[2022-06-26] MEDS: MIDODRINE HCL 5 MG TABLET PO SCH ×3 (08:54→16:13)
[2022-06-26] MEDS: RIFAXIMIN 550 MG TABLET PO SCH ×2 (08:54→21:25)
[2022-06-26] MEDS: LISINOPRIL 20 MG TAB PO SCH (08:54)
[2022-06-26] MEDS: GLIMEPIRIDE 2 MG TAB PO SCH (08:54)
[2022-06-26] MEDS: LIDOCAINE 4% PATCH TP SCH (08:54)
[2022-06-26] MEDS: FUROSEMIDE INJ 10 MG/ML 4 ML VIAL IV SCH ×2 (08:55→21:25)
[2022-06-26] MEDS: CLOPIDOGREL BISULFATE 75 MG TAB PO SCH (08:56)
[2022-06-26] MEDS ORDERED: ONDANSETRON HCL 4 MG ORAL DISINTEGRATING TAB PO PRN (11:00)
[2022-06-26] MEDS: DEXAMETHASONE 4 MG TAB PO SCH (14:45)
[2022-06-26] MEDS: ACETAMINOPHEN 325 MG TAB PO PRN (16:12)
[2022-06-27] VITALS: BP 116/69
[2022-06-27 06:05] VITALS: BP 143/75
[2022-06-27] MEDS: INSULIN REGULAR, HUMAN 100 UNIT/1 ML SQ SCH (07:24)
[2022-06-27 08:32] VITALS: BP 133/78
[2022-06-27] MEDS: MIDODRINE HCL 5 MG TABLET PO SCH (08:42)
[2022-06-27] MEDS: GLIMEPIRIDE 2 MG TAB PO SCH (08:42)
[2022-06-27] MEDS: RIFAXIMIN 550 MG TABLET PO SCH (08:42)
[2022-06-27] MEDS: FUROSEMIDE INJ 10 MG/ML 4 ML VIAL IV SCH (08:43)
[2022-06-27] MEDS: LISINOPRIL 20 MG TAB PO SCH (08:43)
[2022-06-27] MEDS: LIDOCAINE 4% PATCH TP SCH (08:43)
[2022-06-27] MEDS: CLOPIDOGREL BISULFATE 75 MG TAB PO SCH (08:43)
[2022-06-27] MEDS: ESCITALOPRAM OXALATE 10 MG TAB PO SCH (08:43)
[2022-06-27 08:53] VITALS: BP 133/78
[2022-06-27] MEDS ORDERED: CEFTRIAXONE 2 GM in SODIUM CHLORIDE 0.9% 100 ML IV SCH (09:00)
== END 2022-06-27 11:59 | DRG 177 ==
LOC: ER 21:48 → ERHOLD 23:26 → MED/SURG3 06-23 01:21
PROC: 8E0ZXY6 Isolation (ICD-10-PCS; principal; 2022-06-22)
DX: U07.1 COVID-19 (principal); I50.23 Acute on chronic systolic (congestive) heart failure; J12.82 Pneumonia due to coronavirus disease 2019; J15.9 Unspecified bacterial pneumonia; N39.0 Urinary tract infection, site not specified; I13.0 Hypertensive heart and chronic kidney disease with heart failure and stage 1 through stage 4 chronic kidney disease, or unspecified chronic kidney disease; Z99.81 Dependence on supplemental oxygen; E11.65 Type 2 diabetes mellitus with hyperglycemia; E11.22 Type 2 diabetes mellitus with diabetic chronic kidney disease; N18.2 Chronic kidney disease, stage 2 (mild); E86.0 Dehydration
CPT/HCPCS: 36415; 71045; 80048; 80053; 81001; 82550; 82553; 82948; 83605; 83880; 84484; 85025; 87040; 93005; 94799; 99251; 99284; J0456; J0696; J1817; J1940; J7050

== ENCOUNTER 2023-08-31 18:27 | Inpatient (IN) | payer MEDICARE ==
[~2023-08-31] VITALS: Ht 170.2 cm; Wt 131.5 kg
[~2023-08-31 18:27] MED LIST changes: +GLIMEPIRIDE2 MG PO
[2023-08-31] MEDS ORDERED: ONDANSETRON HCL INJ 2MG/ML 2ML 2 MG/ML VIAL IV STA (19:05)
[2023-08-31] MEDS ORDERED: SODIUM CHLORIDE FLUSH 10 ML SYR IV PRN (19:15)
[2023-08-31 19:27] LABS: BASOPHILS # (AUTO) 0.1 (0.0-0.1); BASOPHILS % 1.1 % (0.0-1.0); EOSINOPHILS # (AUTO) 0.1 (0.0-0.4); EOSINOPHILS % 1.2 % (0.0-6.0); HEMATOCRIT 39.7 % (34.2-44.1); HEMOGLOBIN 12.9 g/dL (12.0-16.0); LYMPHOCYTES # (AUTO) 1.2 (1.0-3.2); MEAN CORPUSCULAR HEMOGLOBIN 31.1 pg (28-32); MEAN CORPUSCULAR HGB CONC 32.5 g/dL (31-35); MEAN CORPUSCULAR VOLUME 95.7 fL (81-99); MONOCYTES # (AUTO) 0.4 (0.2-0.8); MONOCYTES % 6.1 % (4.4-11.3); NEUTROPHILS # (AUTO) 5.4 (2.1-6.9); NEUTROPHILS % 74.3 % (38.7-80.0); PLATELET COUNT 154 x10e3/uL (140-360); RED BLOOD COUNT 4.15 x10e6/uL (3.6-5.1); RED CELL DISTRIBUTION WIDTH 13.2 % (11.7-14.4); WHITE BLOOD COUNT 7.25 x10e3/uL (4.8-10.8)
[2023-08-31 22:11] LABS: ALANINE AMINOTRANSFERASE 6 IU/L (0-55); ALBUMIN 3.6 g/dL (3.5-5.0); ALKALINE PHOSPHATASE 61 IU/L (40-150); ANION GAP 12.6 mmol/L (8-16); BILIRUBIN,TOTAL 1.5 mg/dL (0.2-1.2); BLOOD UREA NITROGEN 13 mg/dL (7-26); BUN/CREATININE RATIO 12 (6-25); CALCIUM 9.4 mg/dL (8.4-10.2); CARBON DIOXIDE 36 mmol/L (22-29); CHLORIDE 98 mmol/L (98-107); CREATININE, SERUM 1.11 mg/dL (0.57-1.11); EST GLOMERULAR FILTRATION RATE 51 ML/MIN (>=60); GLUCOSE 96 mg/dL (74-118); POTASSIUM 4.6 mmol/L (3.5-5.1); SODIUM 142 mmol/L (136-145); TOTAL PROTEIN 7.2 g/dL (6.5-8.1)
[2023-08-31 22:30] LABS: TROPONIN I < 0.001 ng/mL (0-0.300)
[2023-08-31] MEDS ORDERED: SODIUM CHLORIDE FLUSH 10 ML SYR INJ PRN (22:30)
[2023-08-31] MEDS ORDERED: ONDANSETRON HCL INJ 2MG/ML 2ML 2 MG/ML VIAL IV PRN (22:30)
[2023-08-31 22:56] LABS: CLARITY,URINE SL CLOUDY (CLEAR); COLOR,URINE YELLOW (YELLOW)
[2023-08-31 22:57] LABS: LEUKOCYTE ESTERASE ,URINE SMALL (NEGATIVE); PH,URINE 7 (5 - 7)
[2023-08-31 22:58] LABS: BILIRUBIN,URINE NEGATIVE (NEGATIVE); GLUCOSE, URINE NEGATIVE (NEGATIVE); KETONES,URINE NEGATIVE (NEGATIVE); NITRITE,URINE NEGATIVE (NEGATIVE); PROTEIN,URINE DIPSTICK 1+ (NEGATIVE); URINE UROBILINOGEN 0.2 mg/dL (0.2 - 1)
[2023-08-31 23:03] LABS: BACTERIA,URINE MANY /HPF; EPITHELIAL CELLS,URINE RARE /LPF; RBC,URINE 0-5 /HPF (0-5); WBC,URINE (MAN) 21-50 /HPF (0-5)
[2023-08-31] MEDS: ENOXAPARIN SODIUM INJ 100 MG/ML SYR SC SCH (23:23)
[2023-08-31] MEDS: FUROSEMIDE INJ 10 MG/ML 4 ML VIAL IV SCH (23:23)
[2023-09-01] VITALS (12 sets, daily range): BP systolic 102–137; BP diastolic 50–66; PULSE 71–90; RESP 17–22; TEMP 97.6–98.6; O2SAT 94–100
[2023-09-01] MEDS ORDERED: PNEUMOCOCCAL VACCINE POLYVALENT 23 MCG/0.5 ML VIAL IM ONE (02:00)
[2023-09-01] MEDS ORDERED: INFLUENZA VIRUS VAC SPLIT INJ 0.5 ML SYR IM ONE (02:00)
[2023-09-01 06:38] LABS: BASOPHILS # (AUTO) 0.1 (0.0-0.1); BASOPHILS % 1.1 % (0.0-1.0); EOSINOPHILS # (AUTO) 0.1 (0.0-0.4); EOSINOPHILS % 1.7 % (0.0-6.0); HEMATOCRIT 38.6 % (34.2-44.1); HEMOGLOBIN 12.2 g/dL (12.0-16.0); LYMPHOCYTES # (AUTO) 1.1 (1.0-3.2); LYMPHOCYTES % 15.7 % (18.0-39.1); MEAN CORPUSCULAR HEMOGLOBIN 30.8 pg (28-32); MEAN CORPUSCULAR HGB CONC 31.6 g/dL (31-35); MEAN CORPUSCULAR VOLUME 97.5 fL (81-99); MONOCYTES # (AUTO) 0.6 (0.2-0.8); MONOCYTES % 8.6 % (4.4-11.3); NEUTROPHILS # (AUTO) 5.2 (2.1-6.9); NEUTROPHILS % 72.6 % (38.7-80.0); PLATELET COUNT 160 x10e3/uL (140-360); RED BLOOD COUNT 3.96 x10e6/uL (3.6-5.1); RED CELL DISTRIBUTION WIDTH 12.8 % (11.7-14.4); WHITE BLOOD COUNT 7.18 x10e3/uL (4.8-10.8)
[2023-09-01 06:56] LABS: CALCIUM 9.1 mg/dL (8.4-10.2); CREATININE, SERUM 1.22 mg/dL (0.57-1.11)
[2023-09-01] MEDS: FUROSEMIDE INJ 10 MG/ML 4 ML VIAL IV SCH (09:22)
[2023-09-01] MEDS: ENOXAPARIN SODIUM INJ 100 MG/ML SYR SC SCH ×2 (09:22→20:40)
[2023-09-01] MEDS: LISINOPRIL 20 MG TAB PO SCH (13:30)
[2023-09-01] MEDS: ACETAMINOPHEN 325 MG TAB PO PRN (20:38)
[2023-09-01] MEDS ORDERED: FUROSEMIDE INJ 10 MG/ML 4 ML VIAL IV SCH (21:00)
[2023-09-02] VITALS (13 sets, daily range): BP systolic 102–124; BP diastolic 48–73; PULSE 70–99; RESP 18–21; TEMP 97.9–98.9; O2SAT 92–98
[2023-09-02] MEDS: ACETAMINOPHEN 325 MG TAB PO PRN ×2 (05:00→20:40)
[2023-09-02 05:37] LABS: BASOPHILS # (AUTO) 0.1 (0.0-0.1); EOSINOPHILS # (AUTO) 0.1 (0.0-0.4); EOSINOPHILS % 1.5 % (0.0-6.0); HEMATOCRIT 43.3 % (34.2-44.1); HEMOGLOBIN 13.9 g/dL (12.0-16.0); LYMPHOCYTES # (AUTO) 0.6 (1.0-3.2); MEAN CORPUSCULAR HEMOGLOBIN 31.2 pg (28-32); MEAN CORPUSCULAR HGB CONC 32.1 g/dL (31-35); MEAN CORPUSCULAR VOLUME 97.3 fL (81-99); MONOCYTES # (AUTO) 0.5 (0.2-0.8); MONOCYTES % 8.8 % (4.4-11.3); NEUTROPHILS # (AUTO) 4.8 (2.1-6.9); NEUTROPHILS % 78.5 % (38.7-80.0); PLATELET COUNT 148 x10e3/uL (140-360); RED BLOOD COUNT 4.45 x10e6/uL (3.6-5.1); RED CELL DISTRIBUTION WIDTH 13.1 % (11.7-14.4); WHITE BLOOD COUNT 6.11 x10e3/uL (4.8-10.8)
[2023-09-02 06:07] LABS: ALBUMIN 3.4 g/dL (3.5-5.0); ALBUMIN/GLOBULIN RATIO 0.9 (0.8-2.0); ANION GAP 15.1 mmol/L (8-16); BILIRUBIN,TOTAL 1.4 mg/dL (0.2-1.2); CALCIUM 9.2 mg/dL (8.4-10.2); CREATININE, SERUM 1.52 mg/dL (0.57-1.11); POTASSIUM 4.1 mmol/L (3.5-5.1); TOTAL PROTEIN 7.3 g/dL (6.5-8.1)
[2023-09-02 06:28] LABS: CHOL/HDL RATIO 2.9 (3.0-3.6)
[2023-09-02] MEDS ORDERED: ESCITALOPRAM OXALATE 10 MG TAB PO SCH (09:00)
[2023-09-02] MEDS: LISINOPRIL 20 MG TAB PO SCH (09:00)
[2023-09-02] MEDS: GLIMEPIRIDE 2 MG TAB PO SCH (09:02)
[2023-09-02] MEDS: FUROSEMIDE INJ 10 MG/ML 4 ML VIAL IV SCH (09:04)
[2023-09-02] MEDS: CLOPIDOGREL BISULFATE 75 MG TAB PO SCH (09:05)
[2023-09-02] MEDS: ENOXAPARIN SODIUM INJ 100 MG/ML SYR SC SCH (09:06)
[2023-09-02] MEDS: LEVALBUTEROL HCL SOLN NEBU 0.63 MG/3 ML NEB INH SCH ×2 (12:30→20:30)
[2023-09-02] MEDS ORDERED: METHYLPREDNISOLONE SOD SUCC 40 MG/ML VIAL 1ML IV ONE (12:30)
[2023-09-02] MEDS: APIXAB 2.5 MG TABLET PO SCH (17:49)
[2023-09-02] MEDS: METHYLPREDNISOLONE SOD SUCC 40 MG/ML VIAL 1ML IV SCH (20:39)
[2023-09-03] VITALS (11 sets, daily range): BP systolic 116–135; BP diastolic 57–66; PULSE 76–93; RESP 16–20; TEMP 97.6–98.5; O2SAT 94–98
[2023-09-03] MEDS: LEVALBUTEROL HCL SOLN NEBU 0.63 MG/3 ML NEB INH SCH ×4 (01:00→19:27)
[2023-09-03 05:56] LABS: BASOPHILS % 0.2 % (0.0-1.0); HEMATOCRIT 40.4 % (34.2-44.1); HEMOGLOBIN 13.3 g/dL (12.0-16.0); LYMPHOCYTES # (AUTO) 0.4 (1.0-3.2); LYMPHOCYTES % 6.8 % (18.0-39.1); MEAN CORPUSCULAR HEMOGLOBIN 31.4 pg (28-32); MEAN CORPUSCULAR HGB CONC 32.9 g/dL (31-35); MEAN CORPUSCULAR VOLUME 95.3 fL (81-99); MONOCYTES # (AUTO) 0.1 (0.2-0.8); MONOCYTES % 1.3 % (4.4-11.3); NEUTROPHILS # (AUTO) 5.6 (2.1-6.9); NEUTROPHILS % 91.2 % (38.7-80.0); PLATELET COUNT 159 x10e3/uL (140-360); RED BLOOD COUNT 4.24 x10e6/uL (3.6-5.1); RED CELL DISTRIBUTION WIDTH 12.6 % (11.7-14.4); WHITE BLOOD COUNT 6.14 x10e3/uL (4.8-10.8)
[2023-09-03 06:36] LABS: ALBUMIN 3.2 g/dL (3.5-5.0); ALBUMIN/GLOBULIN RATIO 0.9 (0.8-2.0); ANION GAP 14.1 mmol/L (8-16); BILIRUBIN,TOTAL 0.7 mg/dL (0.2-1.2); CALCIUM 8.5 mg/dL (8.4-10.2); CREATININE, SERUM 1.49 mg/dL (0.57-1.11); POTASSIUM 4.1 mmol/L (3.5-5.1); TOTAL PROTEIN 6.9 g/dL (6.5-8.1)
[2023-09-03] MEDS ORDERED: GLIMEPIRIDE 2 MG TAB PO SCH (08:00)
[2023-09-03] MEDS ORDERED: IPRATROPIUM BROMIDE 0.02% 2.5 ML NEB NEB PRN (08:15)
[2023-09-03] MEDS: SENNOSIDES 8.6 MG TAB PO SCH (09:00)
[2023-09-03] MEDS: DOCUSATE SODIUM 100 MG CAP PO SCH (09:00)
[2023-09-03] MEDS: METHYLPREDNISOLONE SOD SUCC 40 MG/ML VIAL 1ML IV SCH ×2 (09:55→21:51)
[2023-09-03] MEDS: FUROSEMIDE INJ 10 MG/ML 4 ML VIAL IV SCH (09:55)
[2023-09-03] MEDS: AZITHROMYCIN 250 MG TAB PO SCH (09:55)
[2023-09-03] MEDS: LISINOPRIL 20 MG TAB PO SCH (09:56)
[2023-09-03] MEDS: CLOPIDOGREL BISULFATE 75 MG TAB PO SCH (09:56)
[2023-09-03] MEDS: GLIMEPIRIDE 2 MG TAB PO SCH (09:57)
[2023-09-03] MEDS: ESCITALOPRAM OXALATE 10 MG TAB PO SCH (09:57)
[2023-09-03] MEDS: APIXAB 2.5 MG TABLET PO SCH ×2 (10:02→17:31)
[2023-09-03] MEDS ORDERED: AMMONIUM LACTATE 12% LOTION 225GM BTL TOP SCH (15:00)
[2023-09-04] VITALS (10 sets, daily range): BP systolic 99–122; BP diastolic 48–83; PULSE 67–87; RESP 16–22; TEMP 97.7–98.7; O2SAT 75–98
[2023-09-04] MEDS: LEVALBUTEROL HCL SOLN NEBU 0.63 MG/3 ML NEB INH SCH ×4 (01:00→19:23)
[2023-09-04] MEDS: ACETAMINOPHEN 325 MG TAB PO PRN ×2 (01:57→10:33)
[2023-09-04 06:15] LABS: BASOPHILS % 0.1 % (0.0-1.0); EOSINOPHILS % 0.1 % (0.0-6.0); HEMATOCRIT 39.5 % (34.2-44.1); HEMOGLOBIN 13.3 g/dL (12.0-16.0); LYMPHOCYTES # (AUTO) 0.5 (1.0-3.2); LYMPHOCYTES % 5.5 % (18.0-39.1); MEAN CORPUSCULAR HEMOGLOBIN 31.7 pg (28-32); MEAN CORPUSCULAR HGB CONC 33.7 g/dL (31-35); MONOCYTES # (AUTO) 0.2 (0.2-0.8); MONOCYTES % 2.1 % (4.4-11.3); NEUTROPHILS # (AUTO) 8.8 (2.1-6.9); NEUTROPHILS % 91.7 % (38.7-80.0); PLATELET COUNT 171 x10e3/uL (140-360); RED CELL DISTRIBUTION WIDTH 12.7 % (11.7-14.4); WHITE BLOOD COUNT 9.55 x10e3/uL (4.8-10.8)
[2023-09-04 06:47] LABS: ALBUMIN 3.2 g/dL (3.5-5.0); ALBUMIN/GLOBULIN RATIO 0.9 (0.8-2.0); ANION GAP 15.6 mmol/L (8-16); BILIRUBIN,TOTAL 0.7 mg/dL (0.2-1.2); CALCIUM 8.8 mg/dL (8.4-10.2); CREATININE, SERUM 1.4 mg/dL (0.57-1.11); MAGNESIUM 1.8 MG/DL (1.3-2.1); POTASSIUM 4.6 mmol/L (3.5-5.1); TOTAL PROTEIN 6.9 g/dL (6.5-8.1)
[2023-09-04] MEDS: GLIMEPIRIDE 2 MG TAB PO SCH (08:11)
[2023-09-04] MEDS ORDERED: ONDANSETRON HCL 4 MG ORAL DISINTEGRATING TAB PO PRN (08:30)
[2023-09-04] MEDS: DOCUSATE SODIUM 100 MG CAP PO SCH (09:00)
[2023-09-04] MEDS: SENNOSIDES 8.6 MG TAB PO SCH (09:00)
[2023-09-04] MEDS: APIXAB 2.5 MG TABLET PO SCH ×2 (10:15→17:57)
[2023-09-04] MEDS: METHYLPREDNISOLONE SOD SUCC 40 MG/ML VIAL 1ML IV SCH ×2 (10:15→21:15)
[2023-09-04] MEDS: FUROSEMIDE INJ 10 MG/ML 4 ML VIAL IV SCH (10:15)
[2023-09-04] MEDS: ESCITALOPRAM OXALATE 10 MG TAB PO SCH (10:15)
[2023-09-04] MEDS: CLOPIDOGREL BISULFATE 75 MG TAB PO SCH (10:16)
[2023-09-04] MEDS: AZITHROMYCIN 250 MG TAB PO SCH (10:17)
[2023-09-04] MEDS: LISINOPRIL 20 MG TAB PO SCH (10:17)
[2023-09-04] MEDS ORDERED: AMMONIUM LACTATE 12% LOTION 225GM BTL TOP SCH (21:00)
[2023-09-05] VITALS (8 sets, daily range): BP systolic 117–130; BP diastolic 64–80; PULSE 64–83; RESP 18–20; TEMP 97.9–98.7; O2SAT 94–97
[2023-09-05] MEDS: ACETAMINOPHEN 325 MG TAB PO PRN (01:30)
[2023-09-05] MEDS: LEVALBUTEROL HCL SOLN NEBU 0.63 MG/3 ML NEB INH SCH ×3 (01:43→13:00)
[2023-09-05 06:36] LABS: BASOPHILS % 0.1 % (0.0-1.0); EOSINOPHILS % 0.4 % (0.0-6.0); HEMATOCRIT 41.8 % (34.2-44.1); HEMOGLOBIN 13.8 g/dL (12.0-16.0); LYMPHOCYTES # (AUTO) 0.5 (1.0-3.2); LYMPHOCYTES % 5.6 % (18.0-39.1); MEAN CORPUSCULAR HEMOGLOBIN 31.2 pg (28-32); MEAN CORPUSCULAR VOLUME 94.6 fL (81-99); MONOCYTES # (AUTO) 0.1 (0.2-0.8); MONOCYTES % 1.5 % (4.4-11.3); NEUTROPHILS # (AUTO) 8.2 (2.1-6.9); PLATELET COUNT 169 x10e3/uL (140-360); RED BLOOD COUNT 4.42 x10e6/uL (3.6-5.1); RED CELL DISTRIBUTION WIDTH 12.7 % (11.7-14.4); WHITE BLOOD COUNT 8.95 x10e3/uL (4.8-10.8)
[2023-09-05 07:10] LABS: ALBUMIN 3.3 g/dL (3.5-5.0); ANION GAP 17.7 mmol/L (8-16); BILIRUBIN,TOTAL 0.7 mg/dL (0.2-1.2); CALCIUM 8.9 mg/dL (8.4-10.2); CREATININE, SERUM 1.48 mg/dL (0.57-1.11); MAGNESIUM 1.8 MG/DL (1.3-2.1); POTASSIUM 4.7 mmol/L (3.5-5.1); TOTAL PROTEIN 6.7 g/dL (6.5-8.1)
[2023-09-05] MEDS: GLIMEPIRIDE 2 MG TAB PO SCH (08:30)
[2023-09-05] MEDS ORDERED: PREDNISONE10 MG PO (08:39)
[2023-09-05] MEDS ORDERED: Levalbuterol Hcl Soln Nebu INH (08:39)
[2023-09-05] MEDS ORDERED: DOXYCYCLINE HY100 MG PO (08:39)
[2023-09-05] MEDS ORDERED: IPRATROPIU0.2 MG/1 M NEB (08:39)
[2023-09-05] MEDS ORDERED: ELIQUIS2.5 MG PO (08:39)
[2023-09-05] MEDS ORDERED: FUROSEMIDE40 MG PO (08:39)
[2023-09-05] MEDS ORDERED: DOXYCYCLINE HYCLATE TABLET 100 MG TAB PO SCH (09:00)
[2023-09-05] MEDS: DOCUSATE SODIUM 100 MG CAP PO SCH (09:00)
[2023-09-05] MEDS: SENNOSIDES 8.6 MG TAB PO SCH (09:00)
[2023-09-05] MEDS ORDERED: FUROSEMIDE 40 MG TAB PO SCH (09:00)
[2023-09-05] MEDS ORDERED: PREDNISONE 10 MG TAB PO SCH (09:00)
[2023-09-05] MEDS: CLOPIDOGREL BISULFATE 75 MG TAB PO SCH (09:55)
[2023-09-05] MEDS: APIXAB 2.5 MG TABLET PO SCH (09:55)
[2023-09-05] MEDS: LISINOPRIL 20 MG TAB PO SCH (09:55)
[2023-09-05] MEDS: ESCITALOPRAM OXALATE 10 MG TAB PO SCH (09:56)
[2023-09-05] MEDS ORDERED: LIDOCAINE 4% PATCH TP SCH (11:00)
[2023-09-05] MEDS ORDERED: LIDOCAINE PAIN1 EACH TOP (12:29)
[2023-09-06] MEDS ORDERED: GLIMEPIRIDE 2 MG TAB PO SCH (08:00)
== END 2023-09-05 15:07 | DRG 291 ==
LOC: ER 18:33 → ERHOLD 22:26 → MED/SURG3 23:53
PROVIDERS: ADMIT Internal Medicine; ATTEND Internal Medicine
DX: I13.0 Hypertensive heart and chronic kidney disease with heart failure and stage 1 through stage 4 chronic kidney disease, or unspecified chronic kidney disease (principal); I50.33 Acute on chronic diastolic (congestive) heart failure; J96.01 Acute respiratory failure with hypoxia; J81.0 Acute pulmonary edema; N17.9 Acute kidney failure, unspecified; N39.0 Urinary tract infection, site not specified; Z68.42 Body mass index [BMI] 45.0-49.9, adult; J43.9 Emphysema, unspecified; I48.0 Paroxysmal atrial fibrillation; I27.20 Pulmonary hypertension, unspecified; E66.01 Morbid (severe) obesity due to excess calories; I69.334 Monoplegia of upper limb following cerebral infarction affecting left non-dominant side; N18.9 Chronic kidney disease, unspecified; E11.22 Type 2 diabetes mellitus with diabetic chronic kidney disease; I25.10 Atherosclerotic heart disease of native coronary artery without angina pectoris; I87.8 Other specified disorders of veins; R53.81 Other malaise; Z87.891 Personal history of nicotine dependence; Z87.440 Personal history of urinary (tract) infections; D64.9 Anemia, unspecified; Z79.01 Long term (current) use of anticoagulants; Z20.822 Contact with and (suspected) exposure to COVID-19
CPT/HCPCS: 36415; 71045; 80048; 80053; 80061; 81001; 82948; 83036; 83735; 83880; 84484; 85025; 93005; 93306; 94640; 94760; 94799; 99252; 99285; J0696; J1650; J1940; J2405; J2920; J7050; J7512; U0002

== ENCOUNTER 2024-10-12 01:33 | Inpatient (IN) | payer MEDICARE ==
[2024-10-12] VITALS (14 sets, daily range): BP systolic 89–112; BP diastolic 54–68; PULSE 72–127; RESP 18–24; TEMP 98–100.6; O2SAT 94–99
[~2024-10-12] VITALS: Ht 177.8 cm; Wt 154.2 kg
[~2024-10-12 01:33] MED LIST changes: +DOXYCYCLINE HY100 MG PO; +ELIQUIS2.5 MG PO; +FUROSEMIDE40 MG PO; +IPRATROPIU0.2 MG/1 M NEB; +LIDOCAINE PAIN1 EACH TOP; +Levalbuterol Hcl Soln Nebu INH; +PREDNISONE10 MG PO
[2024-10-12 02:08] LABS: BASOPHILS # (AUTO) 0.1 (0.0-0.1); BASOPHILS % 0.8 % (0.0-1.0); EOSINOPHILS % 0.3 % (0.0-6.0); HEMATOCRIT 43.9 % (34.2-44.1); HEMOGLOBIN 12.9 g/dL (12.0-16.0); LYMPHOCYTES # (AUTO) 0.3 (1.0-3.2); LYMPHOCYTES % 4.8 % (18.0-39.1); MEAN CORPUSCULAR HEMOGLOBIN 31.4 pg (28-32); MEAN CORPUSCULAR HGB CONC 29.4 g/dL (31-35); MEAN CORPUSCULAR VOLUME 106.8 fL (81-99); MONOCYTES # (AUTO) 0.4 (0.2-0.8); MONOCYTES % 6.6 % (4.4-11.3); NEUTROPHILS # (AUTO) 5.6 (2.1-6.9); PLATELET COUNT 139 x10e3/uL (140-360); RED BLOOD COUNT 4.11 x10e6/uL (3.6-5.1); RED CELL DISTRIBUTION WIDTH 12.7 % (11.7-14.4); WHITE BLOOD COUNT 6.48 x10e3/uL (4.8-10.8)
[2024-10-12 02:32] LABS: ALBUMIN 3.5 g/dL (3.5-5.0); ALBUMIN/GLOBULIN RATIO 0.9 (0.8-2.0); ANION GAP 18.1 mmol/L (8-16); BILIRUBIN,TOTAL 1.3 mg/dL (0.2-1.2); CALCIUM 9.7 mg/dL (8.4-10.2); CREATININE, SERUM 1.64 mg/dL (0.57-1.11); POTASSIUM 5.1 mmol/L (3.5-5.1); TOTAL PROTEIN 7.4 g/dL (6.5-8.1)
[2024-10-12] MEDS ORDERED: SODIUM CHLORIDE FLUSH 10 ML SYR INJ PRN (02:45)
[2024-10-12 03:04] LABS: TROPONIN I 0.015 ng/mL (0-0.300)
[2024-10-12 03:18] LABS: CORONAVIRUS COVID-19 AG NEGATIVE (NEGATIVE); INFLUENZA B AG NEGATIVE (NEGATIVE)
[2024-10-12 03:56] LABS: INFLUENZA A AG POSITIVE (NEGATIVE)
[2024-10-12] MEDS: ACETAMINOPHEN 325 MG TAB PO PRN (05:18)
[2024-10-12] MEDS ORDERED: METOPROLOL SUCC25 MG PO (05:32)
[2024-10-12 08:43] LABS: TROPONIN I 0.017 ng/mL (0-0.300)
[2024-10-12] MEDS ORDERED: DEXTROSE 50% SYRINGE 50 ML IV PRN (11:15)
[2024-10-12] MEDS: METOPROLOL SUCCINATE 25 MG TAB XL PO SCH (11:15)
[2024-10-12] MEDS: INSULIN LISPRO 100 UNIT/1 ML 3ML VIAL SQ SCH (11:30)
[2024-10-12] MEDS: FUROSEMIDE INJ 10 MG/ML 4 ML VIAL IV SCH (11:32)
[2024-10-12] MEDS: ESCITALOPRAM OXALATE 10 MG TAB PO SCH (11:32)
[2024-10-12 12:59] LABS: CLARITY,URINE CLEAR (CLEAR); COLOR,URINE STRAW (YELLOW)
[2024-10-12 13:01] LABS: BILIRUBIN,URINE NEGATIVE (NEGATIVE); GLUCOSE, URINE NEGATIVE (NEGATIVE); KETONES,URINE NEGATIVE (NEGATIVE); LEUKOCYTE ESTERASE ,URINE TRACE (NEGATIVE); NITRITE,URINE POSITIVE (NEGATIVE); PH,URINE 5.5 (5 - 7); PROTEIN,URINE DIPSTICK NEGATIVE (NEGATIVE); URINE UROBILINOGEN 0.2 mg/dL (0.2 - 1)
[2024-10-12 13:07] LABS: BACTERIA,URINE MANY /HPF; EPITHELIAL CELLS,URINE FEW /LPF
[2024-10-12] MEDS: NYSTATIN 15 GM POWDER UD BTL TOP SCH (17:14)
[2024-10-12] MEDS: OSELTAMIVIR PHOSPHATE 75 MG CAP PO SCH (17:16)
[2024-10-12] MEDS: APIXABAN 2.5 MG TABLET PO SCH (17:16)
[2024-10-12] MEDS: ATORVASTATIN 40 MG TAB PO SCH (21:20)
[2024-10-12] MEDS: MIDODRINE 2.5 MG TAB PO SCH (21:50)
[2024-10-13] VITALS (30 sets, daily range): BP systolic 63–89; BP diastolic 43–68; PULSE 63–121; RESP 13–24; TEMP 97.1–100.2; O2SAT 94–100
[2024-10-13 07:07] LABS: BASOPHILS % 0.9 % (0.0-1.0); HEMATOCRIT 35.3 % (34.2-44.1); HEMOGLOBIN 10.4 g/dL (12.0-16.0); LYMPHOCYTES # (AUTO) 0.6 (1.0-3.2); LYMPHOCYTES % 13.4 % (18.0-39.1); MEAN CORPUSCULAR HEMOGLOBIN 30.8 pg (28-32); MEAN CORPUSCULAR HGB CONC 29.5 g/dL (31-35); MEAN CORPUSCULAR VOLUME 104.4 fL (81-99); MONOCYTES # (AUTO) 0.6 (0.2-0.8); MONOCYTES % 14.3 % (4.4-11.3); NEUTROPHILS % 69.6 % (38.7-80.0); PLATELET COUNT 142 x10e3/uL (140-360); RED BLOOD COUNT 3.38 x10e6/uL (3.6-5.1); RED CELL DISTRIBUTION WIDTH 13.1 % (11.7-14.4); WHITE BLOOD COUNT 4.33 x10e3/uL (4.8-10.8)
[2024-10-13 07:36] LABS: TROPONIN I 0.011 ng/mL (0-0.300)
[2024-10-13 07:37] LABS: ALBUMIN 2.7 g/dL (3.5-5.0); ALBUMIN/GLOBULIN RATIO 0.9 (0.8-2.0); ANION GAP 12.1 mmol/L (8-16); BILIRUBIN,TOTAL 0.4 mg/dL (0.2-1.2); CALCIUM 8.4 mg/dL (8.4-10.2); CREATININE, SERUM 2.1 mg/dL (0.57-1.11); POTASSIUM 5.1 mmol/L (3.5-5.1); TOTAL PROTEIN 5.6 g/dL (6.5-8.1)
[2024-10-13 08:05] LABS: CHOL/HDL RATIO 2.5 (3.0-3.6); MAGNESIUM 1.6 MG/DL (1.3-2.1)
[2024-10-13 08:26] LABS: THYROID STIMULATING HORMONE 0.629 uIU/mL (0.350-4.940)
[2024-10-13] MEDS ORDERED: LISINOPRIL 20 MG TAB PO SCH (09:00)
[2024-10-13 09:41] LABS: FERRITIN 172.92 ng/mL (4.63-204.00)
[2024-10-13] MEDS: CLOPIDOGREL BISULFATE 75 MG TAB PO SCH (09:54)
[2024-10-13] MEDS: MAGNESIUM SULFATE 2GM/50ML 50 ML IV ONE (12:56)
[2024-10-13] MEDS ORDERED: MAGNESIUM SULFATE 2GM/50ML 50 ML IV ONE (15:00)
[2024-10-13] MEDS ORDERED: SODIUM CHLORIDE 0.9% 500ML 500 ML IV ONE (16:00)
[2024-10-13] MEDS: FLUCONAZOLE 100 MG TAB PO SCH (16:00)
[2024-10-13] MEDS ORDERED: MIDODRINE 2.5 MG TAB PO SCH (16:00)
[2024-10-13] MEDS ORDERED: SODIUM CHLORIDE 0.9% IV STA (16:31)
[2024-10-13 16:35] LABS: ABG PCO2 86 mmHg (35-45); ABG PH 7.18 (7.35-7.45)
[2024-10-13 16:36] LABS: ABG HCO3 32 mmol/L (22-26); ABG PO2 164 mmHg (80-105); ABG TCO2 35
[2024-10-13] MEDS: OSELTAMIVIR PHOSPHATE 30 MG CAPSULE PO SCH (17:00)
[2024-10-13] MEDS: SODIUM CHLORIDE 0.9% 250ML 250 ML IV ONE (17:33)
[2024-10-13] MEDS: LACTATED RINGER'S 1,000 ML INJ SCH (18:28)
[2024-10-13] MEDS: SODIUM CHLORIDE 0.9% 500ML 500 ML ONE (18:35)
[2024-10-13] MEDS: VASOPRESSIN 60 UNIT in DEXTROSE 5% 50ML 57 ML IV SCH ×2 (18:48→19:15)
[2024-10-13] MEDS: NOREPINEPHRINE 8 MG/D5W 250 ML 250 ML IV SCH (20:22)
[2024-10-14] VITALS (49 sets, daily range): BP systolic 75–131; BP diastolic 53–100; PULSE 102–137; RESP 14–31; TEMP 98–100; O2SAT 91–100
[2024-10-14] MEDS ORDERED: PIPERACILLIN/TAZOBACTAM 3.375 GM VIAL ONE (04:27)
[2024-10-14 06:53] LABS: BASOPHILS # (AUTO) 0.1 (0.0-0.1); BASOPHILS % 0.6 % (0.0-1.0); EOSINOPHILS % 0.1 % (0.0-6.0); HEMATOCRIT 39.5 % (34.2-44.1); HEMOGLOBIN 12.1 g/dL (12.0-16.0); LYMPHOCYTES # (AUTO) 0.7 (1.0-3.2); LYMPHOCYTES % 8.2 % (18.0-39.1); MEAN CORPUSCULAR HEMOGLOBIN 31.4 pg (28-32); MEAN CORPUSCULAR HGB CONC 30.6 g/dL (31-35); MEAN CORPUSCULAR VOLUME 102.6 fL (81-99); MONOCYTES # (AUTO) 0.9 (0.2-0.8); MONOCYTES % 10.3 % (4.4-11.3); NEUTROPHILS # (AUTO) 6.8 (2.1-6.9); NEUTROPHILS % 76.8 % (38.7-80.0); PLATELET COUNT 171 x10e3/uL (140-360); RED BLOOD COUNT 3.85 x10e6/uL (3.6-5.1); RED CELL DISTRIBUTION WIDTH 13.2 % (11.7-14.4); WHITE BLOOD COUNT 8.82 x10e3/uL (4.8-10.8)
[2024-10-14] MEDS: ALBUTEROL/IPRATROPIUM 3 ML NEB NEB PRN (07:08)
[2024-10-14 07:29] LABS: ALBUMIN 2.8 g/dL (3.5-5.0); ALBUMIN/GLOBULIN RATIO 0.8 (0.8-2.0); ANION GAP 19.6 mmol/L (8-16); BILIRUBIN,TOTAL 0.7 mg/dL (0.2-1.2); CALCIUM 8.6 mg/dL (8.4-10.2); CREATININE, SERUM 2.97 mg/dL (0.57-1.11); TOTAL PROTEIN 6.2 g/dL (6.5-8.1)
[2024-10-14 07:32] LABS: POTASSIUM 5.6 mmol/L (3.5-5.1)
[2024-10-14] MEDS: SODIUM CHLORIDE 0.9% 1000ML 1,000 ML IV SCH (11:02)
[2024-10-14] MEDS: FUROSEMIDE INJ 10 MG/ML 4 ML VIAL IV ONE (15:39)
[2024-10-15] VITALS (63 sets, daily range): BP systolic 80–168; BP diastolic 50–145; PULSE 99–127; RESP 15–35; TEMP 97.4–98.8; O2SAT 81–100
[2024-10-15 07:02] LABS: BASOPHILS % 0.6 % (0.0-1.0); EOSINOPHILS % 0.3 % (0.0-6.0); HEMATOCRIT 35.8 % (34.2-44.1); HEMOGLOBIN 10.4 g/dL (12.0-16.0); LYMPHOCYTES # (AUTO) 0.7 (1.0-3.2); LYMPHOCYTES % 10.2 % (18.0-39.1); MEAN CORPUSCULAR HEMOGLOBIN 30.8 pg (28-32); MEAN CORPUSCULAR HGB CONC 29.1 g/dL (31-35); MEAN CORPUSCULAR VOLUME 105.9 fL (81-99); MONOCYTES # (AUTO) 0.6 (0.2-0.8); NEUTROPHILS % 77.8 % (38.7-80.0); PLATELET COUNT 118 x10e3/uL (140-360); RED BLOOD COUNT 3.38 x10e6/uL (3.6-5.1); RED CELL DISTRIBUTION WIDTH 13.1 % (11.7-14.4); WHITE BLOOD COUNT 6.37 x10e3/uL (4.8-10.8)
[2024-10-15 07:38] LABS: ALBUMIN 2.6 g/dL (3.5-5.0); ALBUMIN/GLOBULIN RATIO 0.8 (0.8-2.0); ANION GAP 14.9 mmol/L (8-16); BILIRUBIN,TOTAL 0.4 mg/dL (0.2-1.2); CALCIUM 8.3 mg/dL (8.4-10.2); CREATININE, SERUM 2.41 mg/dL (0.57-1.11); MAGNESIUM 1.9 MG/DL (1.3-2.1); PHOSPHORUS 4.1 MG/DL (2.3-4.7); POTASSIUM 4.9 mmol/L (3.5-5.1); TOTAL PROTEIN 5.7 g/dL (6.5-8.1)
[2024-10-16] VITALS (35 sets, daily range): BP systolic 90–134; BP diastolic 65–98; PULSE 91–127; RESP 19–29; TEMP 97–97.6; O2SAT 87–100
[2024-10-16] MEDS: MELATONIN 5 MG TABLET PO PRN (00:27)
[2024-10-16 06:27] LABS: ABG HCO3 32 mmol/L (22-26); ABG PCO2 86 mmHg (35-45); ABG PH 7.18 (7.35-7.45); ABG PO2 164 mmHg (80-105); ABG TCO2 35
[2024-10-16 07:09] LABS: BASOPHILS % 0.6 % (0.0-1.0); EOSINOPHILS % 0.2 % (0.0-6.0); HEMATOCRIT 38.2 % (34.2-44.1); LYMPHOCYTES # (AUTO) 0.5 (1.0-3.2); LYMPHOCYTES % 9.2 % (18.0-39.1); MEAN CORPUSCULAR HEMOGLOBIN 30.6 pg (28-32); MEAN CORPUSCULAR HGB CONC 28.8 g/dL (31-35); MEAN CORPUSCULAR VOLUME 106.4 fL (81-99); MONOCYTES # (AUTO) 0.4 (0.2-0.8); MONOCYTES % 7.4 % (4.4-11.3); NEUTROPHILS # (AUTO) 4.2 (2.1-6.9); NEUTROPHILS % 81.2 % (38.7-80.0); PLATELET COUNT 111 x10e3/uL (140-360); RED BLOOD COUNT 3.59 x10e6/uL (3.6-5.1); RED CELL DISTRIBUTION WIDTH 12.9 % (11.7-14.4); WHITE BLOOD COUNT 5.13 x10e3/uL (4.8-10.8)
[2024-10-16 07:32] LABS: ALBUMIN 2.8 g/dL (3.5-5.0); ALBUMIN/GLOBULIN RATIO 0.8 (0.8-2.0); BILIRUBIN,TOTAL 0.4 mg/dL (0.2-1.2); CALCIUM 8.9 mg/dL (8.4-10.2); CREATININE, SERUM 1.62 mg/dL (0.57-1.11); MAGNESIUM 2.1 MG/DL (1.3-2.1); TOTAL PROTEIN 6.1 g/dL (6.5-8.1)
[2024-10-16] MEDS: METOPROLOL SUCCINATE 25 MG TAB XL PO SCH (09:15)
[2024-10-17] VITALS (17 sets, daily range): BP systolic 89–111; BP diastolic 64–84; PULSE 96–126; RESP 18–26; TEMP 96.6–97.3; O2SAT 94–100
[2024-10-17 06:39] LABS: BASOPHILS % 0.7 % (0.0-1.0); EOSINOPHILS # (AUTO) 0.1 (0.0-0.4); EOSINOPHILS % 1.4 % (0.0-6.0); HEMATOCRIT 42.8 % (34.2-44.1); HEMOGLOBIN 12.3 g/dL (12.0-16.0); LYMPHOCYTES # (AUTO) 0.6 (1.0-3.2); LYMPHOCYTES % 10.6 % (18.0-39.1); MEAN CORPUSCULAR HEMOGLOBIN 31.2 pg (28-32); MEAN CORPUSCULAR HGB CONC 28.7 g/dL (31-35); MEAN CORPUSCULAR VOLUME 108.6 fL (81-99); MONOCYTES # (AUTO) 0.3 (0.2-0.8); MONOCYTES % 5.6 % (4.4-11.3); NEUTROPHILS # (AUTO) 4.7 (2.1-6.9); NEUTROPHILS % 78.7 % (38.7-80.0); PLATELET COUNT 138 x10e3/uL (140-360); RED BLOOD COUNT 3.94 x10e6/uL (3.6-5.1); WHITE BLOOD COUNT 5.92 x10e3/uL (4.8-10.8)
[2024-10-17 06:52] LABS: ANION GAP 15.7 mmol/L (8-16); CALCIUM 9.3 mg/dL (8.4-10.2); CREATININE, SERUM 1.46 mg/dL (0.57-1.11)
[2024-10-17 06:56] LABS: POTASSIUM 5.7 mmol/L (3.5-5.1)
[2024-10-17] MEDS: SOD POLYSTYRENE SULFONATE SUSP 15 GM/60 ML BTL PO ONE (08:12)
[2024-10-17] MEDS: BALSAM PERU/CASTOR OIL 60 GM OINT...G. TP SCH (08:14)
[2024-10-17] MEDS ORDERED: SOD POLYSTYRENE SULFONATE SUSP 15 GM/60 ML BTL PO ONE (10:15)
[2024-10-17] MEDS: MIDODRINE HCL 5 MG TABLET PO SCH (11:49)
[2024-10-17] MEDS: FUROSEMIDE INJ 10 MG/ML 4 ML VIAL IV ONE (17:32)
[2024-10-17] MEDS: METOPROLOL SUCCINATE 50 MG TAB XL PO SCH (20:45)
[2024-10-18] VITALS (12 sets, daily range): BP systolic 89–121; BP diastolic 63–87; PULSE 78–140; RESP 15–26; TEMP 96.6–97.7; O2SAT 96–100
[2024-10-18 06:49] LABS: BASOPHILS % 0.8 % (0.0-1.0); EOSINOPHILS % 0.6 % (0.0-6.0); HEMATOCRIT 40.9 % (34.2-44.1); LYMPHOCYTES # (AUTO) 0.8 (1.0-3.2); LYMPHOCYTES % 15.4 % (18.0-39.1); MEAN CORPUSCULAR HEMOGLOBIN 31.3 pg (28-32); MEAN CORPUSCULAR HGB CONC 29.3 g/dL (31-35); MEAN CORPUSCULAR VOLUME 106.5 fL (81-99); MONOCYTES # (AUTO) 0.4 (0.2-0.8); MONOCYTES % 7.3 % (4.4-11.3); NEUTROPHILS # (AUTO) 3.7 (2.1-6.9); NEUTROPHILS % 73.9 % (38.7-80.0); PLATELET COUNT 142 x10e3/uL (140-360); RED BLOOD COUNT 3.84 x10e6/uL (3.6-5.1); RED CELL DISTRIBUTION WIDTH 12.8 % (11.7-14.4); WHITE BLOOD COUNT 4.94 x10e3/uL (4.8-10.8)
[2024-10-18 07:18] LABS: ALBUMIN 2.9 g/dL (3.5-5.0); ALBUMIN/GLOBULIN RATIO 0.9 (0.8-2.0); ANION GAP 13.6 mmol/L (8-16); BILIRUBIN,TOTAL 0.5 mg/dL (0.2-1.2); CALCIUM 9.3 mg/dL (8.4-10.2); CREATININE, SERUM 1.47 mg/dL (0.57-1.11); MAGNESIUM 2.2 MG/DL (1.3-2.1); POTASSIUM 4.6 mmol/L (3.5-5.1)
[2024-10-18 08:32] LABS: ABG HCO3 34 mmol/L (22-26); ABG PCO2 88 mmHg (35-45); ABG PO2 52 mmHg (80-105); ABG TCO2 37
[2024-10-18 08:32] LABS: ABG HCO3 34 mmol/L (22-26); ABG PCO2 86 mmHg (35-45); ABG PH 7.21 (7.35-7.45); ABG PO2 48 mmHg (80-105); ABG TCO2 37
== END 2024-10-18 13:43 | DRG 871 ==
LOC: ER 01:42 → OBSVTOIN 02:44 → ERHOLD 02:44 → MED/SURG3 04:02 → ICU 10-13 16:46
PROVIDERS: ADMIT Internal Medicine; ATTEND Internal Medicine
PROC: 3E033XZ Introduction of Vasopressor into Peripheral Vein, Percutaneous Approach (ICD-10-PCS; principal; 2024-10-13)
PROC: 05HM33Z Insertion of Infusion Device into Right Internal Jugular Vein, Percutaneous Approach (ICD-10-PCS; 2024-10-13)
PROC: B543ZZA Ultrasonography of Right Jugular Veins, Guidance (ICD-10-PCS; 2024-10-13)
PROC: 4A033R1 Measurement of Arterial Saturation, Peripheral, Percutaneous Approach (ICD-10-PCS; 2024-10-13)
PROC: 4A033R1 Measurement of Arterial Saturation, Peripheral, Percutaneous Approach (ICD-10-PCS; 2024-10-13)
PROC: 5A09357 Assistance with Respiratory Ventilation, Less than 24 Consecutive Hours, Continuous Positive Airway Pressure (ICD-10-PCS; 2024-10-13)
PROC: 3E03329 Introduction of Other Anti-infective into Peripheral Vein, Percutaneous Approach (ICD-10-PCS; 2024-10-13)
PROC: 5A0945A Assistance with Respiratory Ventilation, 24-96 Consecutive Hours, High Flow/Velocity Cannula (ICD-10-PCS; 2024-10-14)
PROC: 4A033R1 Measurement of Arterial Saturation, Peripheral, Percutaneous Approach (ICD-10-PCS; 2024-10-17)
PROC: 4A033R1 Measurement of Arterial Saturation, Peripheral, Percutaneous Approach (ICD-10-PCS; 2024-10-17)
PROC: 4A043R1 Measurement of Venous Saturation, Peripheral, Percutaneous Approach (ICD-10-PCS; 2024-10-17)
DX: A41.51 Sepsis due to Escherichia coli [E. coli] (principal); I50.33 Acute on chronic diastolic (congestive) heart failure; J96.21 Acute and chronic respiratory failure with hypoxia; J96.22 Acute and chronic respiratory failure with hypercapnia; R65.21 Severe sepsis with septic shock; I13.0 Hypertensive heart and chronic kidney disease with heart failure and stage 1 through stage 4 chronic kidney disease, or unspecified chronic kidney disease; N17.9 Acute kidney failure, unspecified; Z68.42 Body mass index [BMI] 45.0-49.9, adult; I69.354 Hemiplegia and hemiparesis following cerebral infarction affecting left non-dominant side; Z16.12 Extended spectrum beta lactamase (ESBL) resistance; N30.01 Acute cystitis with hematuria; Z99.81 Dependence on supplemental oxygen; J10.1 Influenza due to other identified influenza virus with other respiratory manifestations; E11.22 Type 2 diabetes mellitus with diabetic chronic kidney disease; N18.31 Chronic kidney disease, stage 3a; E66.01 Morbid (severe) obesity due to excess calories; Z71.3 Dietary counseling and surveillance; E87.5 Hyperkalemia; I48.0 Paroxysmal atrial fibrillation; Z79.01 Long term (current) use of anticoagulants; I45.10 Unspecified right bundle-branch block; J44.9 Chronic obstructive pulmonary disease, unspecified; Z87.891 Personal history of nicotine dependence; R53.1 Weakness; F33.41 Major depressive disorder, recurrent, in partial remission; R26.89 Other abnormalities of gait and mobility; Z91.141 Patient's other noncompliance with medication regimen due to financial hardship; D63.8 Anemia in other chronic diseases classified elsewhere; I87.2 Venous insufficiency (chronic) (peripheral); E78.2 Mixed hyperlipidemia; R19.7 Diarrhea, unspecified; I95.9 Hypotension, unspecified; I89.0 Lymphedema, not elsewhere classified; L30.4 Erythema intertrigo; G47.30 Sleep apnea, unspecified; Z11.52 Encounter for screening for COVID-19; Z66 Do not resuscitate; Z79.899 Other long term (current) drug therapy; Z79.02 Long term (current) use of antithrombotics/antiplatelets
CPT/HCPCS: 36415; 36600; 71045; 76770; 80048; 80053; 80061; 81001; 82140; 82550; 82607; 82728; 82746; 82805; 82948; 83036; 83540; 83605; 83690; 83735; 83880; 84100; 84132; 84443; 84466; 84484; 85025; 87040; 87086; 87186; 93005; 93306; 94660; 94799; 96372; 99252; 99284; J1940; J2185; J2543; J3475; J7030; J7040; J7050